=== PATIENT | male | born 1940 | race Caucasian/White ===

== ENCOUNTER → 2017-04-23 14:31 | Outpatient (CLI) | payer MEDICARE, OTHER ==
[2016-06-22 09:53] VITALS: BMI 42.9
[~2017-04-23 14:31] MED LIST: ACCUPRIL40 MG PO; ACETAMINOPHEN325 MG PO; ASPIRIN325 MG PO; BAYER CHEWABLE81 MG PO; COREG25 MG PO; ENDOCET 10-3251 TAB PO; LIPITOR10 MG PO; NORVASC10 MG PO; OCUVITE TABLET1 TA1 PO; PLAVIX75 MG PO; PRILOSEC20 MG PO
== END | disposition home or self-care (01) ==
LOC: D.US 14:31
DX: I65.23 Occlusion and stenosis of bilateral carotid arteries (principal)

== ENCOUNTER → 2018-06-25 13:17 | Outpatient (CLI) | payer MEDICARE, OTHER ==
[2016-06-22 09:53] VITALS: BMI 42.9
== END | disposition home or self-care (01) ==
LOC: D.US 13:17
DX: I65.23 Occlusion and stenosis of bilateral carotid arteries (principal)

== ENCOUNTER → 2018-10-21 10:55 | Outpatient (CLI) | payer MEDICARE, BC ==
[2016-06-22 09:53] VITALS: BMI 42.9
== END | disposition home or self-care (01) ==
LOC: D.MRI 10:55
DX: M54.16 Radiculopathy, lumbar region (principal)

== ENCOUNTER 2018-11-03 19:11 | Observation (INO) | payer MEDICARE, BC ==
[~2018-11-03] VITALS: Ht 162.6 cm; Wt 79.4 kg
--- NOTE | ~2018-11-03 | EC ---
PATIENT:EILEEN OSBORN DATE OF SERVICE: 11/03/18 SEX: M MEDICAL RECORD: [id number] DATE OF : 40 LOCATION:D. D.213 AGE OF PATIENT: 77 ADMISSION DATE: 11/03/18 REFERRING PHYSICIAN: INTERPRETING PHYSICIAN: VINEET BOYLE MD ECHOCARDIOGRAM REPORT ECHO CHARGES 4 ECHO COMPLETE Date: 11/04/18 CLINICAL DIAGNOSIS: SYNCOPE, HX HEART DISEASE, CAD, CABG ECHOCARDIOGRAPHIC MEASUREMENTS (adult normal given) AC root (d.<3.7cm) 2.5 cm LV Septum d (<1.2 cm> 1.3 cm Valve Excursion 0.7 cm LV Septum (systole) 2.0 cm Left Atria (s.<4.0cm> 4.6 cm LVPW d(<1.2cm) 1.4 cm RV (d.<2.3cm) 3.0 cm LVPW (sytole) 1.9 cm LV diastole(<5.6CM) 4.1 cm MV E-F(>70mm/sec) cm LV systole 2.4 cm LVOT Diameter 2.2 cm MV exc.(>10mm) cm Est.ejection fraction (50-75%) % DOPPLER: LVIT cm/sec A 64 cm/sec E 137 cm/sec LA cm/sec RVSP 51.5 mmHg LVOT 94 cm/sec AOP1/2T m/s Asc. Ao 209 cm/sec RVOT 53 cm/sec RA cm/sec PA 80 cm/sec AV Gradient Peak 17.4 mmHg AV Mean 8.3 mmHg AV Area 2.3 cm MV Gradient Peak 10.6 mmHg MV Mean 3.8 mmHg MV Area cm COMMENTS: Aviation Electronics Technician: Marsha CONNER Manager Plan: 1 Dr. Boyle TAPE# PACS Pericardial Effusion N DATE OF SERVICE: 11/04/2018 FINDINGS: 1. Left ventricular chamber size is within normal limits. Left ventricular systolic function is normal. Overall ejection fraction is estimated at 55%. 2. Left atrium is enlarged at 4.6 cm. Right atrium and right ventricle chamber sizes are as well mildly dilated. 3. Valvular structures: Aortic valve demonstrates mild calcific aortic stenosis. Valve area calculates to 2.0 cm, but there is a gradient of 17 mm across the valve. The remaining valvular structures have normal structure and ECHOCARDIOGRAM REPORT [id number] EILEEN OSBORN. 4. Doppler interrogation elsewise reveals rvjh-fd-dymhqhaj mitral regurgitation and zfnf-vg-lhnsjdlx tricuspid regurgitation. No other valvular insufficiency or stenosis. Pulmonary systolic pressure is elevated, estimated at 51 mmHg. 5. No evidence of pericardial effusion or left ventricular thrombus. TRANSINT:[id number] Voice Confirmation ID: [id number] DOCUMENT ID: [id number] VINEET BOYLE MD CC: [id number] DICTATION DATE: 11/04/18 163 DESIGN DRAFTSMAN: 11/04/18 [address] [facility] [address] [id number]
[2018-11-03 19:40] LABS: BASOPHILS 0.3 % (0-2); EOSINOPHILS 3.3 % (0-7); HEMATOCRIT 39.1 % (42.0-54.0); HEMOGLOBIN 12.8 g/dL (13.5-17.5); IMMATURE GRANULOCYTES 0.4 % (0-5); LYMPHOCYTES 30.2 % (15-50); MCH 29.2 pg (26.0-34.0); MCHC 32.7 g/dL (31.0-37.0); MCV 89.1 fL (80.0-100.0); MEAN PLATELET VOLUME 9.5 fL (7.4-10.4); MONOCYTES 10.2 % (2-11); NEUTROPHILS 55.6 % (40-80); PLATELET COUNT 186 10x3/uL (130-400); RBC 4.39 10x6/uL (4.20-6.10); RDW 13.8 % (11.5-14.5); WBC 7.2 10x3/uL (4.8-10.8)
[2018-11-03 20:05] LABS: ALBUMIN 3.4 g/dL (3.4-5.0); ALKALINE PHOSPHATASE 106 U/L (46-116); ALT (SGPT) 10 U/L (10-68); BILIRUBIN - TOTAL 0.41 mg/dL (0.2-1.3); CALCIUM 8.5 mg/dL (8.5-10.1); CARBON DIOXIDE 28.3 mmol/L (21.0-32.0); CHLORIDE - SERUM 106 mmol/L (98-107); CREATININE - SERUM 1.7 mg/dL (0.6-1.3); POTASSIUM - SERUM 4.1 mmol/L (3.5-5.1); PROTEIN - SERUM 7.5 g/dL (6.4-8.2); SODIUM 143 mmol/L (136-145); UREA NITROGEN 18 mg/dL (7-18); eGFR NON AFRICAN AMERICAN 42 mL/min (90-120)
[2018-11-03 20:11] LABS: CREATINE KINASE 45 UL (21-232); PRO BNP 1207 pg/mL (0-450)
[2018-11-03 20:13] LABS: CALC OSMOLALITY 288 mosm/kg (275-300); GLUCOSE 129 mg/dL (74-106); TROPONIN-I < 0.017 ng/mL (0.000-0.060)
[2018-11-03 20:31] LABS: APTT 27.5 SECONDS (22.8-39.4); INR 1.09 (0.85-1.17); PROTIME 13.6 SECONDS (11.6-15.0)
--- NOTE | 2018-11-03 21:15 | NUR ---
PT RECEIVED VIA Gogobeans[facility]ER FROM ER, PT UNABLE TO TELL ME MEDS, SAID SOMEONE WILL BE HERE TOMORROW, PLACED ON TELEMTRY, 18G.-IV-LAC-NS @75, BED IS LOW, SRX2, CALL LIGHT IN REACH, WILL CONTINUE PLAN OF CARE
--- NOTE | 2018-11-04 02:36 | NUR ---
I have reviewed this patient and I concur with the Shift Assessment completed by the Licensed Practical Nurse today this shift.
--- NOTE | 2018-11-04 03:29 | NUR ---
ASSISTED PT TO TURN ON L.SIDE. CALL LIGHT IN REACH
[2018-11-04 03:50] VITALS: BP 133/69
[2018-11-04 03:52] VITALS: BP 102/55; BMI 30.1
--- NOTE | 2018-11-04 07:47 | NUR ---
REPORT RECEIVED. WILL CONTINUE WITH POC. PT CURRENTLY LYING SEMI FOWLERS. CALL LIGHT W/I REACH. PT IS AAO AND UP WITH WALKER. RR EVEN AND UNLABORED ON RA. NS INFUSING @75ML/HR VIA R.AC PIV PT DENIES ANY NEEDS AT THIS TIME. NO S/S OF DISTRESS NOTED. WILL CTM.
[2018-11-04 08:28] VITALS: BP 145/72
--- NOTE | 2018-11-04 11:14 | NUR ---
AM MEDICATIONS ADMINISTERED. PT HAD LARGE BM. CLEANED PT AND APPLIED NEW LINENS. PT DENIES ANY NEEDS. WILL CTM.
[2018-11-04 11:40] VITALS: BP 141/76
[2018-11-04 13:57] VITALS: Ht 162.6 cm; Wt 79.4 kg
[2018-11-04 14:55] VITALS: BP 132/72
--- NOTE | 2018-11-04 15:20 | NUR ---
I have reviewed this patient and I concur with the Shift Assessment completed by the Licensed Practical Nurse today this shift.
--- NOTE | 2018-11-04 19:48 | NUR ---
RESUMING PATIENT CARE. PATIENT IS ALERT AND ORIENTED. RESPIRATIONS ARE EVEN AND UNLABORED. NO S/S OF DISTRESS. NO C/O PAIN. CALL LIGHT WITHIN REACH. WILL CPOC.
[2018-11-04 20:05] VITALS: BP 140/61
[2018-11-05 03:47] VITALS: BP 156/68
--- NOTE | 2018-11-05 05:14 | NUR ---
PATIENT IS RESTING COMFORTABLY IN BED. RESPIRATIONS ARE EVEN AND UNLABORED. NO S/S OF DISTRESS. NO C/O PAIN. CALL LIGHT WITHIN REACH. WILL CPOC.
--- NOTE | 2018-11-05 07:00 | NUR ---
RECEIVED BEDSIDE REPORT. ASSUMED CARE OF PATIENT. CALL LIGHT WITHIN REACH. PATIENT HARD OF HEARING. DENIES NEEDS AT THIS TIME. EDEMA NOTED TO BILATERAL LOWER EXTREMITIES. NO DISTRESS. RESP EVEN AND UNLABORED.
[2018-11-05 08:26] VITALS: BP 150/64
--- NOTE | 2018-11-05 09:11 | NUR ---
MEDICATED FOR PAIN AT THIS TIME. NO DISTRESS. ASSISTED PATIENT TO LYE DOWN IN BED.
[2018-11-05 11:44] VITALS: BP 141/66
--- NOTE | 2018-11-05 11:56 | NUR ---
20 GAUGE IV PLACED TO LEFT FOREARM X 1 STICK. GOOD BLOOD RETURN, EASY FLUSH. TOLERATED IV PLACEMENT WELL. TAPED, DATED,AND SECURED. IV FLUIDS INFUSING ORDERED AT THIS TIME.
--- NOTE | 2018-11-05 13:25 | HP ---
PATIENT: EILEEN OSBORN MEDICAL RECORD: [id number] ACCOUNT: [id number] LOCATION:[address] : 40 ADMISSION DATE: 11/03/18 PCP: HANK HOWARD MD HISTORY AND PHYSICAL EXAMINATION DATE OF ADMISSION: 11/03/2018 CHIEF COMPLAINT: Near syncope. HISTORY OF PRESENT ILLNESS: This is a 77-year-old white male with a past medical history of coronary artery disease with bypass years ago. He also has hypertension, arthritis, and chronic low back pain. He has been feeling weaker lately. He and his family were eating at a [employer] on 11/03/2018. He had finished his plate, gotten up to go get some more, and felt real weak. He broke out in a cold sweat. He had to sit down. He made it back to his table, ate some more, and felt weaker. He had a near syncopal episode. He was brought to the ER and had 1 episode of nausea and vomiting en route to the ER. There, his blood pressure initially was low at 114/47. He is on 3 antihypertensive medications at almost maximum doses for all 3. He states he has not had any chest pain, but with his symptoms and his age and his past medical history, he is assigned to observation at this time. PAST MEDICAL AND SURGICAL HISTORY: Hyperlipidemia, hypertension, coronary artery disease, arthritis, and herniated lumbar disc. PAST SURGICAL HISTORY: Coronary artery bypass grafting. He had surgery for L4-L5 herniated disc by Dr. Armenta in 2011 at [facility] [facility]. He is very hard of hearing. HOME MEDICATIONS: He takes carvedilol 25 mg twice a day, amlodipine 10 mg once a day and lisinopril 40 mg once a day. He takes Furosemide 20 mg 2 tablets daily as needed for swelling. He takes Percocet 10/325 four times a day p.r.n. back pain, Flexeril 10 mg 3 times a day p.r.n. spasm, omeprazole 20 mg a day, clopidogrel 75 mg once a day, and atorvastatin 10 mg once a day. ALLERGIES: PENICILLIN. HABITS: Unfortunately, he has continued to smoke. No alcohol or drugs. SOCIAL HISTORY: He is . He lives with a son and lbnqjaov-dw-anq. FAMILY HISTORY: Noncontributory. REVIEW OF SYSTEMS: GENERAL: No major weight changes. HEENT: No particular sinus or allergy problems. RESPIRATORY: Long smoking history. He does not use any inhalers or have much trouble with COPD or emphysema. CARDIAC: See above history for his heart. He is followed by Dr. Boyle and saw him back in June for routine check. It is really unknown when his last echocardiogram was. GASTROINTESTINAL: Has heartburn. GENITOURINARY: No significant problems there. MUSCULOSKELETAL: He has arthritis and he has chronic low back pain. A recent MRI done in the last 3 weeks of his lumbar spine showed degenerative disc HISTORY AND PHYSICAL [id number] EILEEN OSBORN L disease with bulging discs. NEUROLOGIC: He is hard of hearing. No seizures, no migraine headaches. PSYCHIATRIC: Denies depression or melancholia. PHYSICAL EXAMINATION: VITAL SIGNS: Temperature 97.2, pulse 78, respirations 20, blood pressure 145/72. GENERAL: He is very hard of hearing, even with his hearing aids and he does not have them now. HEENT: Unremarkable. NECK: Supple. No JVD or bruit. HEART: Regular rate and rhythm. LUNGS: Fairly clear, few rales bilaterally. ABDOMEN: Soft, flat, nontender. EXTREMITIES: No edema. BACK: With generalized tenderness in the lumbar area. LABORATORY DATA: CBC is normal. INR 1.09. Basic metabolic panel is okay except creatinine elevated at 1.7, which is about usual for him. Liver functions were okay. ProBNP 1207, troponin less than 0.017. Chest x-ray shows left basilar atelectasis. ASSESSMENT: 1. Near syncope. 2. Hypertension with low blood pressure reading in the ER. 3. History of coronary artery disease. 4. Chronic pain in his back, on Percocet p.r.n. PLAN: We will back down a little on his carvedilol. Continue to monitor blood pressure. We will place him on telemetry. We will schedule an echocardiogram. Other tests or procedures as warranted. TRANSINT:[id number] Voice Confirmation ID: [id number] DOCUMENT ID: [id number] HANK HOWARD MD at 1325 CC: [id number] DICTATION DATE: 11/04/182032 SAMPLE PULLER: 11/04/18 [address] [facility] [place] [address]
--- NOTE | 2018-11-05 14:56 | NUR ---
PATIENT RESTING IN BED. FAMILY AT BEDSIDE. CALL LIGHT WITHIN REACH. NO DISTRESS.
--- NOTE | 2018-11-05 15:14 | NUR ---
KYREE WITH PT HERE TO WALK PATIENT AT THIS TIME.
--- NOTE | 2018-11-05 15:31 | NUR ---
SPOKE WITH YUNG, NURSE, TO LET HER KNOW THAT PT HAS EVALUATED PATIENT AND HE IS SAFE FOR DISCHARGE WITH THE USE OF HIS ROLLING WALKER. REQUESTED THAT YUNG ASK IF HE WILL WANTS TO DISCHARGE HIM TO HOME TODAY. YUNG STATES SHE WILL LET KNOW AND IT MAY BE AFTER CLINIC BEFORE HE IS ABLE TO PUT IN ANY ORDERS.
[2018-11-05 15:34] VITALS: BP 152/69
--- NOTE | 2018-11-05 18:04 | NUR ---
TELEMETRY REMOVED AT 1754 20 GAUGE IV REMOVED FROM LEFT FOREARM. PRESSURE HELD TO SITE. NO BLEEDING. CATHETER TIP INTACT. 2X2 GAUZE APPLIED AND SECURED WITH BANDAID. TOLERATED IV REMOVAL WELL. 1800 DISCHARGE INSTRUCTIONS PROVIDED TO PATIENT AND HIS DAUGHTERS WHOM HE LIVES WITH. PATIENT AND FAMILY VERBALIZED UNDERSTANDING OF ALL INSTRUCTIONS PROVIDED. 1803 PATIENT LEFT UNIT VIA WHEELCHAIR WITH ALL PERSONAL BELONGINGS. PATIENT LEFT UNIT IN NO DISTRESS. PATIENT DISCHARGED TO HOME.
== END 2018-11-05 18:03 | disposition home or self-care (01) ==
LOC: D.ER 19:11 → OBSVTIME 20:26 → D.M2 20:26
PROVIDERS: Emergency Medicine; ADMIT Family Medicine; ATTEND Family Medicine
DX: I95.1 Orthostatic hypotension (principal); I25.10 Atherosclerotic heart disease of native coronary artery without angina pectoris; Z95.1 Presence of aortocoronary bypass graft; I10 Essential (primary) hypertension; E78.5 Hyperlipidemia, unspecified; G89.29 Other chronic pain

== ENCOUNTER → 2019-06-25 10:56 | Outpatient (CLI) | payer MEDICARE, BC | END | disposition home or self-care (01) | LOC: D.US 06-23 15:00 | PROVIDERS: ATTEND Internal Medicine Cardiovascular Disease | DX: I65.23 Occlusion and stenosis of bilateral carotid arteries (principal) ==

== ENCOUNTER 2019-12-01 12:20 | Inpatient (IN) | payer MEDICARE, BC ==
[~2019-12-01] VITALS: Ht 162.6 cm; Wt 81.2 kg
[2019-12-01 13:30] VITALS: BP 108/66
[2019-12-01 15:00] VITALS: BP 119/68
[2019-12-01 15:48] LABS: BASOPHILS 0.1 % (0-2); EOSINOPHILS 3.9 % (0-7); HEMATOCRIT 33.1 % (42.0-54.0); IMMATURE GRANULOCYTES 0.3 % (0-5); LYMPHOCYTES 18.2 % (15-50); MCH 24.6 pg (26.0-34.0); MCHC 30.2 g/dL (31.0-37.0); MCV 81.5 fL (80.0-100.0); MEAN PLATELET VOLUME 9.2 fL (7.4-10.4); NEUTROPHILS 68.5 % (40-80); PLATELET COUNT 203 10x3/uL (130-400); RBC 4.06 10x6/uL (4.20-6.10); RDW 17.3 % (11.5-14.5); WBC 7.9 10x3/uL (4.8-10.8)
[2019-12-01 16:07] LABS: ANION GAP 10.6 mmol/L (8-16); CALCIUM 8.3 mg/dL (8.5-10.1); CARBON DIOXIDE 27.9 mmol/L (21.0-32.0); CREATININE - SERUM 1.6 mg/dL (0.6-1.3); POTASSIUM - SERUM 3.5 mmol/L (3.5-5.1)
[2019-12-01 16:17] LABS: ALBUMIN 2.9 g/dL (3.4-5.0); BILIRUBIN - TOTAL 0.94 mg/dL (0.2-1.3); PROTEIN - SERUM 7.2 g/dL (6.4-8.2); TROPONIN-I 0.022 ng/mL (0.000-0.060)
[2019-12-01] MEDS ORDERED: LASIX40 MG PO (16:38)
[2019-12-01] MEDS ORDERED: COREG12.5 MG PO (16:39)
[2019-12-01] MEDS ORDERED: FEXMID7.5 MG PO (16:39)
[2019-12-01 17:00] VITALS: BP 118/64
[2019-12-01 20:00] VITALS: BP 99/54
[2019-12-01 20:44] VITALS: BP 99/54; BMI 30.8
[2019-12-02] VITALS: BP 106/48
[2019-12-02 04:00] VITALS: BP 117/63
[2019-12-02 05:22] LABS: BASOPHILS 0.1 % (0-2); EOSINOPHILS 4.1 % (0-7); HEMATOCRIT 33.4 % (42.0-54.0); IMMATURE GRANULOCYTES 0.4 % (0-5); LYMPHOCYTES 14.8 % (15-50); MCH 24.4 pg (26.0-34.0); MCHC 29.9 g/dL (31.0-37.0); MCV 81.5 fL (80.0-100.0); MEAN PLATELET VOLUME 9.5 fL (7.4-10.4); MONOCYTES 10.5 % (2-11); NEUTROPHILS 70.1 % (40-80); PLATELET COUNT 224 10x3/uL (130-400); RDW 17.6 % (11.5-14.5); WBC 7.7 10x3/uL (4.8-10.8)
[2019-12-02 05:39] LABS: ANION GAP 11.9 mmol/L (8-16); CALCIUM 8.3 mg/dL (8.5-10.1); CARBON DIOXIDE 28.5 mmol/L (21.0-32.0); CREATININE - SERUM 1.4 mg/dL (0.6-1.3); POTASSIUM - SERUM 3.4 mmol/L (3.5-5.1)
[2019-12-02 07:37] VITALS: BP 144/73
--- NOTE | 2019-12-02 10:01 | HP ---
PATIENT: EILEEN OSBORN MEDICAL RECORD: [id number] ACCOUNT: [id number] LOCATION:[address] : 40 ADMISSION DATE: 12/01/19 PCP: HANK HOWARD MD HISTORY AND PHYSICAL EXAMINATION DATE OF ADMISSION: 12/01/2019 CHIEF COMPLAINT: Left hip pain, unable to bear weight. HISTORY OF PRESENT ILLNESS: This is a 78-year-old white male who I followed for a long time, has history of hypertension, coronary artery disease, osteoarthritis, lumbar disk disease with chronic pain and very hard of hearing. A couple of days ago, he was in his kitchen, getting a cup of coffee. He set his coffee down and turned to sit down when he fell and he started with acute left hip pain at that time and he has been unable to bear weight. He was brought to the ER around 4:06 and found to have left femoral neck fracture and nondisplaced fracture of the anterior left acetabulum. Also, on EKG in the ER, his heart rate was 113 and he was found to be in atrial fibrillation, which is a new diagnosis. The patient is followed by [place] cardiology for his heart disease. PAST MEDICAL HISTORY: Hypertension, hyperlipidemia, coronary artery disease, osteoarthritis, lumbar disk disease, peripheral artery disease, hard of hearing. PAST SURGICAL HISTORY: Coronary artery bypass graft, lumbar spine surgery by Dr. Armenta in 2011. ALLERGIES: PENICILLIN. HOME MEDICATIONS: Percocet 10 mg t.i.d., Lasix 20 mg 2 a day, Lipitor 10 mg once a day, Phenergan p.r.n., omeprazole 20 mg twice a day, amlodipine 10 mg once a day, Flexeril t.i.d. p.r.n. pain, Plavix 75 mg once a day, aspirin 325 mg once a day, quinapril 40 mg once a day, carvedilol 25 mg he takes one-half b.i.d. HABITS: The patient has continued to smoke and states he is going to quit. He denies alcohol or drug use. SOCIAL HISTORY: He is . He is retired. He lives with family. REVIEW OF SYSTEMS: GENERAL: No major weight changes. HEENT: No particular sinus or allergy problems. RESPIRATORY: Long time smoker. He is not on any medication for COPD or emphysema. CARDIAC: See above history. He saw Dr. Boyle about every 6 months to a year, last seen in July 2019. GASTROINTESTINAL: He has had reflux problems. GENITOURINARY: No significant problems there. MUSCULOSKELETAL: Chronic low back pain. He has had back surgery. He has osteoarthritis. NEUROLOGIC: No migraines. No seizures. He is very hard of hearing. PSYCHIATRIC: Denies depression or melancholia. PHYSICAL EXAMINATION: HISTORY AND PHYSICAL [id number] EILEEN OSBORN VITAL SIGNS: Today, temperature 99.0, pulse 115, respirations 15, blood pressure 144/73, O2 sat 91%. GENERAL: He is awake and alert. He is very hard of hearing. HEENT: Unremarkable. NECK: Supple. HEART: Irregularly irregular with tachycardia. LUNGS: With bilateral rhonchi, which is fairly common for him. ABDOMEN: Soft, nontender. EXTREMITIES: No edema. He has pain in the left hip. LABORATORY AND DIAGNOSTIC DATA: CBC with a white count of 7700, hemoglobin 10, hematocrit 33.4, MCV normal at 81. Sodium 140, potassium 3.4, chloride 103, CO2 28.5, BUN 24, creatinine 1.4. Liver enzymes were all normal. Troponin 0.022. EKG in the ER showed AFib with a rate of 113. This is a new diagnosis. X-rays done; x-ray of the lumbar spine showed degenerative changes. CT of the lumbar spine showed infrarenal abdominal aortic aneurysm. CT of the pelvis showed left femoral neck fracture, mildly displaced, and nondisplaced fracture of anterior portion of the left acetabulum. X-ray of the left hip did not show the fracture, just showed osteoarthritis of the hip. Chest x-ray showed nothing acute. ASSESSMENT: 1. Left hip fracture. 2. Left acetabulum fracture. 3. New diagnosis of atrial fibrillation with rapid ventricular response. 4. Hypertension. 5. Coronary artery disease. 6. Hard of hearing. PLAN: Ortho has been consulted. We will place a consult to cardiology, place him on telemetry. Other tests or procedures as warranted. TRANSINT:[id number] Voice Confirmation ID: [id number] DOCUMENT ID: [id number] HANK HOWARD MD at 1001 CC: [id number] DICTATION DATE: 12/02/19815 INJECTION MOLDING ENGINEER: 12/02/19 0859 ADM IN [facility] [address] [place] [address]
[2019-12-02 12:17] VITALS: BP 95/55
[2019-12-02 12:21] VITALS: BMI 30.7
[2019-12-02 13:01] VITALS: Ht 162.6 cm; Wt 81.2 kg
[2019-12-02 16:14] VITALS: BP 112/64
[2019-12-02 21:55] VITALS: BP 121/67
[2019-12-03 00:55] VITALS: BP 131/76
[2019-12-03 06:50] VITALS: BP 141/72
[2019-12-03 09:03] VITALS: BP 154/90
[2019-12-03 13:41] VITALS: BP 106/71
--- NOTE | 2019-12-03 18:27 | MORECARE ---
CASE MANAGEMENT DISCHARGE SUMMARY PATIENT: EILEEN OSBORN UNIT: [id number] ADM DATE: 12/01/19 AGE: 78 : 40 SEX: M ROOM/BED: D.2230 AUTHOR: WENCESLAO SCOTT PHYSICIAN: REFERRING PHYSICIAN: NINOSKA EVANS MD DATE OF SERVICE: 12/03/19 Discharge Plan Patient Name: EILEEN OSBORN [facility] [facility] 1940 Planned Disposition: Anticipated Discharge Date: Discharge Date: Expected LOS: Initial Reviewer: [email or web address] Initial Review Date: 12/01/2019 Generated: 12/03/19 7:27 pm Comments DCP- Discharge Planning Updated by [email or web address]: Dagmar Cordoba on 12/03/19 5:[address] ATTEMPTED TO SEE PATIENT TODAY, BUT HE WAS SLEEPING. CM WILL ATTEMPT AGAIN AT A LATER TIME Patient Name: EILEEN OSBORN Page [id number] at 1827 All edits/amendments must be made on the electronic document DICTATION DATE: 12/03/191826 RURAL CARRIER: BARNEY 12/03/191826 RPT#: [id number] DC DATE: STATUS: ADM IN [facility] [address] [place] [address] END OF REPORT
[2019-12-03 18:29] VITALS: BP 116/77
[2019-12-03 21:49] VITALS: BP 139/78
[2019-12-04 01:49] VITALS: BP 118/65
[2019-12-04 06:01] VITALS: BP 110/68
[2019-12-04 11:58] VITALS: BP 135/69
[2019-12-04 13:42] VITALS: BP 117/71
[2019-12-04 17:16] VITALS: BP 126/64
[2019-12-04 20:00] VITALS: BP 117/69
[2019-12-05] VITALS (7 sets, daily range): BP systolic 93–149; BP diastolic 59–93
[2019-12-05 05:11] LABS: HEMATOCRIT 30.7 % (42.0-54.0); HEMOGLOBIN 9.4 g/dL (13.5-17.5); MCH 25.1 pg (26.0-34.0); MCHC 30.6 g/dL (31.0-37.0); MCV 81.9 fL (80.0-100.0); MEAN PLATELET VOLUME 9.4 fL (7.4-10.4); RBC 3.75 10x6/uL (4.20-6.10); RDW 17.4 % (11.5-14.5); WBC 8.2 10x3/uL (4.8-10.8)
--- NOTE | 2019-12-05 14:52 | MORECARE ---
CASE MANAGEMENT DISCHARGE SUMMARY PATIENT: EILEEN HENNESSY UNIT: [id number] ADM DATE: 12/01/19 AGE: 78 : 40 SEX: M ROOM/BED: D.2230 AUTHOR: WENCESLAO SCOTT PHYSICIAN: REFERRING PHYSICIAN: NINOSKA EVANS MD DATE OF SERVICE: 12/05/19 Discharge Plan Patient Name: EILEEN HENNESSY Facility: [facility]:[place] : 1940 Planned Disposition: Inpatient Rehab Anticipated Discharge Date: 12/05/19 Discharge Date: Expected LOS: 4 Initial Reviewer: [email or web address] Initial Review Date: 12/01/2019 Generated: 12/05/19 3:51 pm Comments DCP- Discharge Planning Updated by [email or web address]: Dagmar Cordoba on 12/03/19 5:[address] ATTEMPTED TO SEE PATIENT TODAY, BUT HE WAS SLEEPING. CM WILL ATTEMPT AGAIN AT A LATER TIME DCPIA - Discharge Planning Initial Assessment Updated by [email or web address]: Maria Luisa Quezada on 12/05/19 2:50 pm * Is the patient Alert and Oriented? Yes * How many steps to enter\exit or inside your home? Ramp/0 * PCP Dr. Fall * Pharmacy [facility] on [address] * Preadmission Environment Home with Family * ADLs Partial Dependent * Partial ADLs (Assistance needed) Ambulation Medication Management * Equipment Grab Bars Shower Chair Walker Wheelchair * List name and contact numbers for known caregivers / representatives who currently or will assist patient after discharge: Joey Hennessy - son and [facility] - [phone] Holly Islas - daughter - [phone] * Verbal permission to speak to the caregivers and representatives has been obtained from the patient. Yes * Community resources currently utilized None * Additional services required to return to the preadmission environment? Yes * Can the patient safely return to the preadmission environment? Yes * Has this patient been hospitalized within the prior 30 days at any hospital? No Last DP export: 12/03/19 5:27 pm Patient Name: EILEEN HENNESSY Page [id number] at 1452 All edits/amendments must be made on the electronic document DICTATION DATE: 12/05/191450 STUDENT UNION CONSULTANT: BARNEY 12/05/191450 RPT#: [id number] DC DATE: STATUS: ADM IN [facility] [address] [place] [address] END OF REPORT
--- NOTE | 2019-12-05 14:59 | MORECARE ---
CASE MANAGEMENT DISCHARGE SUMMARY PATIENT: EILEEN HENNESSY UNIT: [id number] ADM DATE: 12/01/19 AGE: 78 : 40 SEX: M ROOM/BED: D.2230 AUTHOR: WENCESLAO SCOTT PHYSICIAN: REFERRING PHYSICIAN: NINOSKA EVANS MD DATE OF SERVICE: 12/05/19 Discharge Plan Patient Name: EILEEN HENNESSY Facility: [facility]:[place] : 1940 Planned Disposition: Inpatient Rehab Anticipated Discharge Date: 12/05/19 Discharge Date: Expected LOS: 4 Initial Reviewer: [email or web address] Initial Review Date: 12/01/2019 Generated: 12/05/19 3:59 pm Comments DCP- Discharge Planning Updated by [email or web address]: Maria Luisa Quezada on 12/05/19 1:[address] Patient Name: EILEEN HENNESSY Admission Status: Elective Accout number: [id number] Admission Date: 12-01-2019 : 1940 Admission Diagnosis:FRACTURE OF UNSP PART OF NECK OF LEFT FEMUR, INIT Attending: NINOSKA EVANS Current LOS: 4 Anticipated DC Date: 12-05-2019 Planned Disposition: Inpatient Rehab Primary Insurance: MEDICARE A & B Discharge Planning Comments: CM met with patient to discuss discharge planning/needs. He is in agreement to inpatient rehab at [facility]. He states he lives with his son and DIL and their child. He asks if I can call his son or daughter for further questions. I called Holly, no answer at his son's number. Holly verifies his address and contact phone numbers. She states that his DIL sets up his pill box and patient no longer drives. States otherwise he is independent. States he does use a walker and they have a wheelchair for outings. She agrees with inpatient rehab when medically stable. CM will continue to follow and assist with discharge planning/needs. Assistant Customer Service Manager: Maria Luisa Quezada DCP- Discharge Planning Updated by [email or web address]: Dagmar Cordoba on 12/03/19 5:[address] ATTEMPTED TO SEE PATIENT TODAY, BUT HE WAS SLEEPING. CM WILL ATTEMPT AGAIN AT A LATER TIME DCPIA - Discharge Planning Initial Assessment Updated by [email or web address]: Maria Luisa Quezada on 12/05/19 2:50 pm * Is the patient Alert and Oriented? Yes * How many steps to enter\exit or inside your home? Ramp/0 * PCP Dr. Fall * Pharmacy [facility] on [address] * Preadmission Environment Home with Family * ADLs Partial Dependent * Partial ADLs (Assistance needed) Ambulation Medication Management * Equipment Grab Bars Shower Chair Walker Wheelchair * List name and contact numbers for known caregivers / representatives who currently or will assist patient after discharge: Joey Hennessy - son and DIL - [phone] Holly Islas - daughter - [phone] * Verbal permission to speak to the caregivers and representatives has been obtained from the patient. Yes * Community resources currently utilized None * Additional services required to return to the preadmission environment? Yes * Can the patient safely return to the preadmission environment? Yes * Has this patient been hospitalized within the prior 30 days at any hospital? No Coverage Notice Reviewer: [email or web address] - Maria Luisa Quezada Notice Issued Date-Time: 12/05/2019 14:53 Notice Type: Patient Choice Letter Notice Delivered To: Patient Relationship to Patient: Self [place] Name: Delivery Method: HAND - Hand Delivered Yvette Days: Prior Verbal Notification: Recipient Understood Notice: Yes Recipient Signature: Yes Med Rec Note Co-signed by Attending: Coverage Notice Comment: ALBERTA for [facility] inpatient rehab Last DP export: 12/05/19 1:52 p Patient Name: EILEEN HENNESSY Page [id number] at 1459 All edits/amendments must be made on the electronic document DICTATION DATE: 12/05/191458 HOME HEALTH ASSISTANT: BARNEY 12/05/19 145 RPT#: [id number] DC DATE: STATUS: ADM IN [facility] [address] [facility] [place] [address] END OF REPORT
--- NOTE | 2019-12-05 16:37 | MORECARE ---
CASE MANAGEMENT DISCHARGE SUMMARY PATIENT: EILEEN HENNESSY UNIT: [id number] ADM DATE: 12/01/19 AGE: 78 : 40 SEX: M ROOM/BED: D.2230 AUTHOR: WENCESLAO SCOTT PHYSICIAN: REFERRING PHYSICIAN: NINOSKA EVANS MD DATE OF SERVICE: 12/05/19 Discharge Plan Patient Name: EILEEN HENNESSY Facility: [facility]:[place] : 1940 Planned Disposition: Inpatient Rehab Anticipated Discharge Date: 12/05/19 Discharge Date: Expected LOS: 4 Initial Reviewer: [id number] Initial Review Date: 12/01/2019 Generated: 12/05/19 5:36 pm Comments DCP- Discharge Planning Updated by [id number]: Maria Luisa Quezada on 12/05/19 3:[address] Denisha in inpatient rehab states they will accept the patient to their department when medically stable. CM will continue to follow and assist with discharge planning/needs. DCP- Discharge Planning Updated by [id number]: Maria Luisa Quezada on 12/05/19 1:[address] Patient Name: EILEEN HENNESSY Admission Status: Elective Accout number: [id number] Admission Date: 12-01-2019 : 1940 Admission Diagnosis:FRACTURE OF UNSP PART OF NECK OF LEFT FEMUR, INIT Attending: NINOSKA EVANS Current LOS: 4 Anticipated DC Date: 12-05-2019 Planned Disposition: Inpatient Rehab Primary Insurance: MEDICARE A & B Discharge Planning Comments: CM met with patient to discuss discharge planning/needs. He is in agreement to inpatient rehab at [facility]. He states he lives with his son and DIL and their child. He asks if I can call his son or daughter for further questions. I called Holly, no answer at his son's number. Holly verifies his address and contact phone numbers. She states that his DIL sets up his pill box and patient no longer drives. States otherwise he is independent. States he does use a walker and they have a wheelchair for outings. She agrees with inpatient rehab when medically stable. CM will continue to follow and assist with discharge planning/needs. Engineering Professor: Maria Luisa Quezada DCP- Discharge Planning Updated by [id number]: Dagmar Cordoba on 12/03/19 5:[address] ATTEMPTED TO SEE PATIENT TODAY, BUT HE WAS SLEEPING. CM WILL ATTEMPT AGAIN AT A LATER TIME DCPIA - Discharge Planning Initial Assessment Updated by [id number]: Maria Luisa Quezada on 12/05/19 2:50 pm * Is the patient Alert and Oriented? Yes * How many steps to enter\exit or inside your home? Ramp/0 * PCP Dr. Fall * Pharmacy [facility] on [address] * Preadmission Environment Home with Family * ADLs Partial Dependent * Partial ADLs (Assistance needed) Ambulation Medication Management * Equipment Grab Bars Shower Chair Walker Wheelchair * List name and contact numbers for known caregivers / representatives who currently or will assist patient after discharge: Joey Hennessy - son and [facility] - [phone] Holly Islas - daughter - [phone] * Verbal permission to speak to the caregivers and representatives has been obtained from the patient. Yes * Community resources currently utilized None * Additional services required to return to the preadmission environment? Yes * Can the patient safely return to the preadmission environment? Yes * Has this patient been hospitalized within the prior 30 days at any hospital? No Coverage Notice Reviewer: [id number] - Maria Luisa Quezada Notice Issued Date-Time: 12/05/2019 14:53 Notice Type: Patient Choice Letter Notice Delivered To: Patient Relationship to Patient: Self Desk Pens Assembler Name: Delivery Method: HAND - Hand Delivered Yvette Days: Prior Verbal Notification: Recipient Understood Notice: Yes Recipient Signature: Yes Med Rec Note Co-signed by Attending: Coverage Notice Comment: ALBERTA for [facility] inpatient rehab Last DP export: 12/05/19 1:59 p Patient Name: EILEEN HENNESSY Page [id number] at 1637 All edits/amendments must be made on the electronic document DICTATION DATE: 12/05/191635 SECOND CUTTER: BARNEY 12/05/191635 RPT#: [id number] DC DATE: STATUS: ADM IN [facility] [address] [place] [address] END OF REPORT
[2019-12-06] VITALS: BP 97/62
[2019-12-06 04:00] VITALS: BP 108/64
[2019-12-06 05:32] LABS: HEMATOCRIT 29.6 % (42.0-54.0); HEMOGLOBIN 8.9 g/dL (13.5-17.5); MCH 24.8 pg (26.0-34.0); MCHC 30.1 g/dL (31.0-37.0); MCV 82.5 fL (80.0-100.0); MEAN PLATELET VOLUME 9.2 fL (7.4-10.4); RBC 3.59 10x6/uL (4.20-6.10); RDW 17.8 % (11.5-14.5); WBC 8.8 10x3/uL (4.8-10.8)
[2019-12-06 14:18] VITALS: BP 163/67
[2019-12-06 20:00] VITALS: BP 97/47
[2019-12-07] VITALS: BP 99/47
[2019-12-07 04:00] VITALS: BP 104/69
[2019-12-07 10:42] VITALS: BP 103/64
[2019-12-07 17:50] VITALS: BP 102/62
[2019-12-07 22:30] VITALS: BP 120/71
[2019-12-08 01:25] VITALS: BP 124/76
[2019-12-08 04:59] VITALS: BP 147/77
[2019-12-08 05:06] LABS: BASOPHILS 0.1 % (0-2); EOSINOPHILS 1.9 % (0-7); HEMATOCRIT 31.1 % (42.0-54.0); HEMOGLOBIN 9.3 g/dL (13.5-17.5); IMMATURE GRANULOCYTES 0.5 % (0-5); LYMPHOCYTES 14.1 % (15-50); MCH 24.6 pg (26.0-34.0); MCHC 29.9 g/dL (31.0-37.0); MCV 82.3 fL (80.0-100.0); MEAN PLATELET VOLUME 8.7 fL (7.4-10.4); MONOCYTES 13.9 % (2-11); NEUTROPHILS 69.5 % (40-80); RBC 3.78 10x6/uL (4.20-6.10); RDW 17.5 % (11.5-14.5); WBC 8.3 10x3/uL (4.8-10.8)
[2019-12-08 05:19] LABS: PLATELET COUNT 309 10x3/uL (130-400)
[2019-12-08 05:23] LABS: ANION GAP 9.6 mmol/L (8-16); CALCIUM 8.1 mg/dL (8.5-10.1); CARBON DIOXIDE 30.8 mmol/L (21.0-32.0); CREATININE - SERUM 1.5 mg/dL (0.6-1.3); POTASSIUM - SERUM 3.4 mmol/L (3.5-5.1)
[2019-12-08 09:27] VITALS: BP 138/69
--- NOTE | 2019-12-08 09:59 | OP ---
PATIENT NAME: EILEEN OSBORN MEDICAL RECORD: [id number] :40 LOCATION:D.MS [id number] ADMISSION DATE:12/01/19 SURGEON: CLAUDIA SULLIVAN MD DATE OF OPERATION: 12/04/2019 PREOPERATIVE DIAGNOSES: 1. Displaced left femoral neck fracture. 2. Anterior acetabular fracture. POSTOPERATIVE DIAGNOSES: 1. Displaced left femoral neck fracture. 2. Anterior acetabular fracture. PROCEDURE: Left endoprosthetic bipolar replacement for displaced femoral neck fracture. SURGEON: Claudia Sullivan MD PEDIATRIC OCCUPATIONAL THERAPIST: SARITHA Brown INTRAOPERATIVE COMPLICATIONS: None. SUMMARY OF PATHOLOGIC FINDINGS: The patient did have a displaced femoral neck fracture consistent with preoperative radiographs. The patient was found to have a very slight crack in the articular surface of the anterior most aspect of the acetabulum; however, it was nondisplaced and I do not feel like it needed any operative intervention in this elderly male. IMPLANTS USED: Accolade II stem on a standard size 26 femoral head with a 49 bipolar component. ESTIMATED BLOOD LOSS: Approximately 100 cc. OPERATIVE SUMMARY IN DETAIL: After obtaining the appropriate preoperative orthopedic surgery consent as well as anesthetic consultation, evaluation and clearance, the patient was placed on the operating table in supine position. After general laryngeal mask airway was administered, the patient was placed in a right lateral decubitus position. All pressure points were well padded to include down leg peroneal pad as well as axillary roll. The patient was held firmly to the operating table using the vacuum pack suction system. The patient's left lower extremity and hip were then prepped and draped in routine sterile fashion. At this point, the appropriate timeout was taken given the unique identifiers and agreed upon by all. Curvilinear incision was made over the greater trochanter, taken down to the IT band to reveal the gluteus medius minimus attachment, so the IT band was split in line with the fibers to reveal the gluteus medius minimus attachment. The gluteus medius minimus were reflected anteriorly. The hip capsule was cut in a T-type fashion and saved for later reapproximation. At this point, the appropriate hematoma was encountered. The femoral neck cut was made using the femoral neck cutting guide and then the femoral head was removed using the corkscrew system from [employer]. Palpable and direct visualization of the patient's acetabulum showed the very small anterior inferior portion of the acetabular fracture, which was stable with palpation. There was no step-off. At this point, attention was then returned to the proximal femur. Serial and sequential reaming and broaching were done for the appropriate size stem that would be a size 4. The size 4 stem was put into OPERATIVE REPORT [id number] EILEEN OSBORN. Trials were undertaken and it was felt that a size standard inner ball and a 49 would be the most appropriate. After copious irrigations were tamped in place, the Pablo taper, reduced, taken through range of motion and found to be stable in all planes. Intraoperative radiograph was taken and showed good position and placement with excellent leg length reapproximation and no displacement of the acetabular fracture component. At this point, the wound was copiously irrigated. Hip capsule was closed with #2 Ethibond. The entire wound was then filled with a gram of vancomycin, a gram and tobramycin. The residual wound was closed by SARITHA Brown including reapproximation of gluteus medius minimus back to the greater trochanter in a transosseous fashion using #5 Ethibond. This was followed by #2 Ethibond, #1 Vicryl, 2-0 Vicryl, and skin dell. Sterile dressings were applied. The patient was awakened and taken to the recovery room in stable condition. All final needle and sponge counts were correct. TRANSINT:[id number] Voice Confirmation ID: [id number] DOCUMENT ID: [id number] NATE LUNDBERG, CLAUDIA ADORNO at 0959 CC: [id number] DICTATION DATE: 12/04/191912 PLATE STACKER: 12/05/19 0059 [facility] [address] [id number]
[2019-12-08 13:19] VITALS: BP 106/63
[2019-12-08 17:47] VITALS: BP 114/62
[2019-12-08 20:00] VITALS: BP 119/64
[2019-12-09 00:57] VITALS: BP 129/65
[2019-12-09 04:57] VITALS: BP 137/68
[2019-12-09 08:47] VITALS: BP 135/72
[2019-12-09 12:48] VITALS: BP 103/57
[2019-12-09] MEDS ORDERED: ELIQUIS2.5 MG PO (13:37)
[2019-12-09] MEDS ORDERED: BETAPACE 120 M120 MG PO (13:38)
[2019-12-09] MEDS ORDERED: HYDROCODON-ACE1 EA10 PO (13:39)
--- NOTE | 2019-12-09 13:58 | MORECARE ---
CASE MANAGEMENT DISCHARGE SUMMARY PATIENT: EILEEN HENNESSY UNIT: [id number] ADM DATE: 12/01/19 AGE: 79 : 40 SEX: M ROOM/BED: D.2230 AUTHOR: WENCESLAO SCOTT PHYSICIAN: REFERRING PHYSICIAN: NINOSKA EVANS MD DATE OF SERVICE: 12/09/19 Discharge Plan Patient Name: EILEEN HENNESSY Facility: [facility]:[place] : 1940 Planned Disposition: Inpatient Rehab Anticipated Discharge Date: 12/05/19 Discharge Date: Expected LOS: 4 Initial Reviewer: [email or web address] Initial Review Date: 12/01/2019 Generated: 12/09/19 2:58 pm DCP- Discharge Planning Updated by [id number]: Maria Luisa Quezada on 12/05/19 3:[address] Denisha in inpatient rehab states they will accept the patient to their department when medically stable. CM will continue to follow and assist with discharge planning/needs. DCP- Discharge Planning Updated by [id number]: Maria Luisa Quezada on 12/05/19 1:[address] Patient Name: EILEEN HENNESSY Admission Status: Elective Accout number: [id number] Admission Date: 12-01-2019 : 1940 Admission Diagnosis:FRACTURE OF UNSP PART OF NECK OF LEFT FEMUR, INIT Attending: NINOSKA EVANS Current LOS: 4 Anticipated DC Date: 12-05-2019 Planned Disposition: Inpatient Rehab Primary Insurance: MEDICARE A & B Discharge Planning Comments: CM met with patient to discuss discharge planning/needs. He is in agreement to inpatient rehab at [facility]. He states he lives with his son and DIL and their child. He asks if I can call his son or daughter for further questions. I called Holly, no answer at his son's number. Holly verifies his address and contact phone numbers. She states that his DIL sets up his pill box and patient no longer drives. States otherwise he is independent. States he does use a walker and they have a wheelchair for outings. She agrees with inpatient rehab when medically stable. CM will continue to follow and assist with discharge planning/needs. Life Science Teacher: Maria Luisa Quezada DCP- Discharge Planning Updated by [email or web address]: Dagmar Serratoken on 12/03/19 5:[address] ATTEMPTED TO SEE PATIENT TODAY, BUT HE WAS SLEEPING. CM WILL ATTEMPT AGAIN AT A LATER TIME DCPIA - Discharge Planning Initial Assessment Updated by [email or web address]: Maria Luisa Quezada on 12/05/19 2:50 pm * Is the patient Alert and Oriented? Yes * How many steps to enter\exit or inside your home? Ramp/0 * PCP Dr. Fall * Pharmacy [facility] on [address] * Preadmission Environment Home with Family * ADLs Partial Dependent * Partial ADLs (Assistance needed) Ambulation Medication Management * Equipment Grab Bars Shower Chair Walker Wheelchair * List name and contact numbers for known caregivers / representatives who currently or will assist patient after discharge: Joey Hennessy - son and [facility] - [phone] Holly Islas - daughter - [phone] * Verbal permission to speak to the caregivers and representatives has been obtained from the patient. Yes * Community resources currently utilized None * Additional services required to return to the preadmission environment? Yes * Can the patient safely return to the preadmission environment? Yes * Has this patient been hospitalized within the prior 30 days at any hospital? No Coverage Notice Reviewer: [id number] - Maria Luisa Quezada Notice Issued Date-Time: 12/05/2019 14:53 Notice Type: Patient Choice Letter Notice Delivered To: Patient Relationship to Patient: Self Conveyor Technician Name: Delivery Method: HAND - Hand Delivered Yvette Days: Prior Verbal Notification: Recipient Understood Notice: Yes Recipient Signature: Yes Med Rec Note Co-signed by Attending: Coverage Notice Comment: ALBERTA for [facility] inpatient rehab Last DP export: 12/05/19 3:37 p Patient Name: EILEEN HENNESSY Page [id number] at 1358 All edits/amendments must be made on the electronic document DICTATION DATE: 12/09/19 1354 HYDRAULIC PRESS OPERATOR: BARNEY 12/09/19 1358 RPT#: [id number] DC DATE: STATUS: ADM IN [facility] [address] [place] [address] END OF REPORT
--- NOTE | 2019-12-09 14:09 | MORECARE ---
CASE MANAGEMENT DISCHARGE SUMMARY PATIENT: EILEEN HENNESSY UNIT: [id number] ADM DATE: 12/01/19 AGE: 79 : 40 SEX: M ROOM/BED: D.2230 AUTHOR: TYLERDOC PHYSICIAN: REFERRING PHYSICIAN: NINOSKA EVANS MD DATE OF SERVICE: 12/09/19 Discharge Plan Patient Name: EILEEN HENNESSY Facility: [facility]:[place] : 1940 Planned Disposition: Inpatient Rehab Anticipated Discharge Date: 12/05/19 Discharge Date: Expected LOS: 4 Initial Reviewer: [email or web address] Initial Review Date: 12/01/2019 Generated: 12/09/19 3:08 pm Comments DCP- Discharge Planning Updated by [id number]: Dagmar Cordoba on 12/09/19 1:[address] PATIENT WILL BE DISCHARGING TO INPATIENT REHAB TODAY I CALLED AND SPOKE TO SON AND IMM GIVEN DCP- Discharge Planning Updated by [id number]: Maria Luisa Quezada on 12/05/19 3:[address] Denisha in inpatient rehab states they will accept the patient to their department when medically stable. CM will continue to follow and assist with discharge planning/needs. DCP- Discharge Planning Updated by [id number]: Maria Luisa Quezada on 12/05/19 1:[address] Patient Name: EILEEN HENNESSY Admission Status: Elective Accout number: [id number] Admission Date: 12-01-2019 : 1940 Admission Diagnosis:FRACTURE OF UNSP PART OF NECK OF LEFT FEMUR, INIT Attending: NINOSKA EVANS Current LOS: 4 Anticipated DC Date: 12-05-2019 Planned Disposition: Inpatient Rehab Primary Insurance: MEDICARE A & B Discharge Planning Comments: CM met with patient to discuss discharge planning/needs. He is in agreement to inpatient rehab at [facility]. He states he lives with his son and DIL and their child. He asks if I can call his son or daughter for further questions. I called Holly, no answer at his son's number. Holly verifies his address and contact phone numbers. She states that his DIL sets up his pill box and patient no longer drives. States otherwise he is independent. States he does use a walker and they have a wheelchair for outings. She agrees with inpatient rehab when medically stable. CM will continue to follow and assist with discharge planning/needs. Pattern Changer And Repairer: Maria Luisa Boswellsola DCP- Discharge Planning Updated by [email or web address]: Dagmar Cordoba on 12/03/19 5:[address] ATTEMPTED TO SEE PATIENT TODAY, BUT HE WAS SLEEPING. CM WILL ATTEMPT AGAIN AT A LATER TIME DCPIA - Discharge Planning Initial Assessment Updated by [id number]: Maria Luisa Quezada on 12/05/19 2:50 pm * Is the patient Alert and Oriented? Yes * How many steps to enter\exit or inside your home? Ramp/0 * PCP Dr. Fall * Pharmacy [facility] on [address] * Preadmission Environment Home with Family * ADLs Partial Dependent * Partial ADLs (Assistance needed) Ambulation Medication Management * Equipment Grab Bars Shower Chair Walker Wheelchair * List name and contact numbers for known caregivers / representatives who currently or will assist patient after discharge: Joey Hennessy - son and DIL - [phone] Holly Islas - daughter - [phone] * Verbal permission to speak to the caregivers and representatives has been obtained from the patient. Yes * Community resources currently utilized None * Additional services required to return to the preadmission environment? Yes * Can the patient safely return to the preadmission environment? Yes * Has this patient been hospitalized within the prior 30 days at any hospital? No Coverage Notice Reviewer: [id number] - Maria Luisa Pilar Notice Issued Date-Time: 12/05/2019 14:53 Notice Type: Patient Choice Letter Notice Delivered To: Patient Relationship to Patient: Self Student Counsellor Name: Delivery Method: HAND - Hand Delivered Yvette Days: Prior Verbal Notification: Recipient Understood Notice: Yes Recipient Signature: Yes Med Rec Note Co-signed by Attending: Coverage Notice Comment: ALBERTA for [facility] inpatient rehab Reviewer: [id number] - Dagmar Cordoba Notice Issued Date-Time: 12/09/2019 13:59 Notice Type: IM Discharge Notice Notice Delivered To: Patient Relationship to Patient: Student Counsellor Name: Delivery Method: HAND - Hand Delivered Yvette Days: Prior Verbal Notification: Recipient Understood Notice: Yes Recipient Signature: Yes Med Rec Note Co-signed by Attending: Coverage Notice Comment: Last DP export: 12/09/19 12:58 p Patient Name: ANURAG EILEEN Page [id number] at 1409 All edits/amendments must be made on the electronic document DICTATION DATE: 12/09/191407 BAG SORTER: BARNEY 12/09/191407 RPT#: [id number] DC DATE: STATUS: ADM IN [facility] [address] [place] [address] END OF REPORT
--- NOTE | 2019-12-10 09:01 | MORECARE ---
CASE MANAGEMENT DISCHARGE SUMMARY PATIENT: EILEEN HENNESSY UNIT: [id number] ADM DATE: 12/01/19 AGE: 79 : 40 SEX: M ROOM/BED: D.2230 AUTHOR: WENCESLAO SCOTT PHYSICIAN: REFERRING PHYSICIAN: NINOSKA EVANS MD DATE OF SERVICE: 12/10/19 Discharge Plan Patient Name: EILEEN HENNESSY Facility: [facility]:[place] : 1940 Planned Disposition: Inpatient Rehab Anticipated Discharge Date: 12/05/19 Discharge Date: 12/09/2019 Expected LOS: 4 Initial Reviewer: [id number] Initial Review Date: 12/01/2019 Generated: 12/10/19 10:01 am Comments DCP- Discharge Planning Updated by [email or web address]: Dagmar Cordoba on 12/09/19 1:[address] PATIENT WILL BE DISCHARGING TO INPATIENT REHAB TODAY I CALLED AND SPOKE TO SON AND IMM GIVEN DCP- Discharge Planning Updated by [id number]: Maria Luisa Quezada on 12/05/19 3:[address] [facility]isha in inpatient rehab states they will accept the patient to their department when medically stable. CM will continue to follow and assist with discharge planning/needs. DCP- Discharge Planning Updated by [email or web address]: Maria Luisa Quezada on 12/05/19 1:[address] Patient Name: EILEEN HENNESSY Admission Status: Elective Accout number: [id number] Admission Date: 12-01-2019 : 1940 Admission Diagnosis:FRACTURE OF UNSP PART OF NECK OF LEFT FEMUR, INIT Attending: NINOSKA EVANS Current LOS: 4 Anticipated DC Date: 12-05-2019 Planned Disposition: Inpatient Rehab Primary Insurance: MEDICARE A & B Discharge Planning Comments: CM met with patient to discuss discharge planning/needs. He is in agreement to inpatient rehab at [facility]. He states he lives with his son and DIL and their child. He asks if I can call his son or daughter for further questions. I called Holly, no answer at his son's number. Holly verifies his address and contact phone numbers. She states that his DIL sets up his pill box and patient no longer drives. States otherwise he is independent. States he does use a walker and they have a wheelchair for outings. She agrees with inpatient rehab when medically stable. CM will continue to follow and assist with discharge planning/needs. Natural Remedy Consultant: Maria Luisarocky Quezada DCP- Discharge Planning Updated by [email or web address]: Dagmar Cordoba on 12/03/19 5:[address] ATTEMPTED TO SEE PATIENT TODAY, BUT HE WAS SLEEPING. CM WILL ATTEMPT AGAIN AT A LATER TIME DCPIA - Discharge Planning Initial Assessment Updated by [id number]: Maria Luisa Quezada on 12/05/19 2:50 pm * Is the patient Alert and Oriented? Yes * How many steps to enter\exit or inside your home? Ramp/0 * PCP Dr. Fall * Pharmacy [facility] on [address] * Preadmission Environment Home with Family * ADLs Partial Dependent * Partial ADLs (Assistance needed) Ambulation Medication Management * Equipment Grab Bars Shower Chair Walker Wheelchair * List name and contact numbers for known caregivers / representatives who currently or will assist patient after discharge: Joey Hennessy - son and [facility] - [phone] Holly Islas - daughter - [phone] * Verbal permission to speak to the caregivers and representatives has been obtained from the patient. Yes * Community resources currently utilized None * Additional services required to return to the preadmission environment? Yes * Can the patient safely return to the preadmission environment? Yes * Has this patient been hospitalized within the prior 30 days at any hospital? No Coverage Notice Reviewer: [id number] - Maria Luisa Quezada Notice Issued Date-Time: 12/05/2019 14:53 Notice Type: Patient Choice Letter Notice Delivered To: Patient Relationship to Patient: Self Cafe Manager Name: Delivery Method: HAND - Hand Delivered Yvette Days: Prior Verbal Notification: Recipient Understood Notice: Yes Recipient Signature: Yes Med Rec Note Co-signed by Attending: Coverage Notice Comment: ALBERTA for [facility] inpatient rehab Reviewer: [id number] - Dagmar Cordoba Notice Issued Date-Time: 12/09/2019 13:59 Notice Type: IM Discharge Notice Notice Delivered To: Patient Relationship to Patient: Cafe Manager Name: Delivery Method: HAND - Hand Delivered Yvette Days: Prior Verbal Notification: Recipient Understood Notice: Yes Recipient Signature: Yes Med Rec Note Co-signed by Attending: Coverage Notice Comment: Last DP export: 12/09/19 1:09 p Patient Name: EILEEN HENNESSY Page [id number] at 0901 All edits/amendments must be made on the electronic document DICTATION DATE: 12/10/19900 COMMISSIONED SALES ASSOCIATE: BARNEY 12/10/19900 RPT#: [id number] DC DATE:12/09/19 STATUS: DIS IN [facility] [address] [place] [address] END OF REPORT
== END 2019-12-09 19:04 | DRG 956 ==
LOC: D.ER 12:20 → D.MS 16:31
PROVIDERS: Family Medicine; Orthopaedic Surgery; ADMIT Family Medicine; ATTEND Family Medicine
PROC: 0SRS0JZ Replacement of Left Hip Joint, Femoral Surface with Synthetic Substitute, Open Approach (ICD-10-PCS; principal; 2019-12-04 08:30)
DX: S72.002A Fracture of unspecified part of neck of left femur, initial encounter for closed fracture (principal); S32.402A Unspecified fracture of left acetabulum, initial encounter for closed fracture; I50.22 Chronic systolic (congestive) heart failure; W19.XXXA Unspecified fall, initial encounter; I25.10 Atherosclerotic heart disease of native coronary artery without angina pectoris; M19.90 Unspecified osteoarthritis, unspecified site; E78.5 Hyperlipidemia, unspecified; M51.36 Other intervertebral disc degeneration, lumbar region; I73.9 Peripheral vascular disease, unspecified; I48.91 Unspecified atrial fibrillation; I11.0 Hypertensive heart disease with heart failure; Z86.73 Personal history of transient ischemic attack (TIA), and cerebral infarction without residual deficits

== ENCOUNTER 2019-12-09 15:50 | Inpatient (IN) | payer MEDICARE, BC ==
[~2019-12-09] VITALS: Ht 162.6 cm; Wt 81.2 kg
[~2019-12-09 15:50] MED LIST changes: +BETAPACE 120 M120 MG PO; +COREG12.5 MG PO; +ELIQUIS2.5 MG PO; +FEXMID7.5 MG PO; +HYDROCODON-ACE1 EA10 PO; +LASIX40 MG PO
--- NOTE | 2019-12-09 19:38 | NUR ---
AWAKE AND ALERT. RESTING IN BED./ ADMITTED TO [facility] EVANS. NOTED LEFT HIP ORIF. O2/3L ON PER NASAL CANNULA. CALL LIGHT IN REACH.
[2019-12-09 20:00] VITALS: BP 112/71
[2019-12-09 22:10] VITALS: BP 121/62; BMI 30.8
--- NOTE | 2019-12-10 00:46 | NUR ---
RESTING IN BED WITH RESPIRATIONS UNLABORED. O2/2L ON PER NASAL CANNULA. NO ACUTE DISTRESS NOTED.
--- NOTE | 2019-12-10 06:29 | NUR ---
MEDICATED FOR PAIN. SEE OCT. RESPIRATIONS UNLABORED. NO ACUTE CHANGES IN CONDITION THIS SHIFT. SMALL AMOUNT OF DRAINAGE NOTED TO DRESSING ON LEFT HIP. WILL CONTINUE TO MONITOR.
[2019-12-10 07:15] LABS: BASOPHILS 0.1 % (0-2); EOSINOPHILS 2.5 % (0-7); HEMATOCRIT 30.8 % (42.0-54.0); HEMOGLOBIN 9.2 g/dL (13.5-17.5); IMMATURE GRANULOCYTES 0.4 % (0-5); MCH 24.6 pg (26.0-34.0); MCHC 29.9 g/dL (31.0-37.0); MCV 82.4 fL (80.0-100.0); PLATELET COUNT 342 10x3/uL (130-400); RBC 3.74 10x6/uL (4.20-6.10); RDW 17.6 % (11.5-14.5)
[2019-12-10 07:32] LABS: ANION GAP 10.1 mmol/L (8-16); CALCIUM 8.1 mg/dL (8.5-10.1); CARBON DIOXIDE 32.4 mmol/L (21.0-32.0); CREATININE - SERUM 1.2 mg/dL (0.6-1.3); POTASSIUM - SERUM 3.5 mmol/L (3.5-5.1)
--- NOTE | 2019-12-10 08:00 | NUR ---
PT EATING BREAKFAST TOLERATING WELL WILL MONITER
[2019-12-10 08:32] VITALS: BP 145/76
--- NOTE | 2019-12-10 12:00 | NUR ---
I have reviewed this patient and I concur with the Shift Assessment completed by the Licensed Practical Nurse today this shift.
[2019-12-10 13:15] VITALS: Ht 162.6 cm; Wt 81.2 kg
--- NOTE | 2019-12-10 13:58 | NUR ---
CARE TEAM MEETING: PATIENT IS NEW TO UNIT AND WILL BE RA AT NEXT MEETING. WILL CONTINUE TO FOLLOW WITH PATIENT.
--- NOTE | 2019-12-10 17:53 | NUR ---
PT RESTING IN BED WITH EYES OPEN CALL LIGHT IN REACH WILL MONITER
--- NOTE | 2019-12-10 18:40 | NUR ---
BEDSIDE REPORT COMPLETE. PT LYING IN BED ON RIGHT SIDE EYES CLOSED RESTING COMFORTABLY. RR EVEN AND UNLABORED. CALL LIGHT AND WATER WITHIN REACH. BED ALARM ON. CPOC
[2019-12-10 21:08] VITALS: BP 107/62
--- NOTE | 2019-12-11 00:29 | NUR ---
PT LYING IN BED ON LEFT SIDE EYES CLOSED RESTING. RR EVEN AND UNLABORED. CALL LIGHT WITHIN REACH. BED ALARM ON. CPOC
--- NOTE | 2019-12-11 02:55 | NUR ---
INCONTINENT CARE PROVIDED. MED VOID. DENIES ANY OTHER NEEDS OR PAIN. CALL LIGHT AND WATER WITHIN REACH. BED ALARM ON. CPOC
--- NOTE | 2019-12-11 05:19 | NUR ---
INCONTINENT CARE PROVIDED. BRIEF CHANGED MED VOID. DENIES ANY OTHER NEEDS OR PAIN. CALL LIGHT WITHIN REACH. BED ALARM ON. CPOC
[2019-12-11 08:15] VITALS: BP 121/67
--- NOTE | 2019-12-11 18:40 | NUR ---
BEDSIDE REPORT COMPLETE. PT LYING IN BED ON RIGHT SIDE EYES CLOSED RESTING. RR EVEN AND UNLABORED. CALL LIGHT WITHIN REACH. BED ALARM ON. CPOC
[2019-12-11 19:30] VITALS: BP 101/44
--- NOTE | 2019-12-11 23:34 | NUR ---
PT LYING IN BED ON RIGHT SIDE EYES CLOSED RESTING. RR EVEN AND UNLABORED. CALL LIGHT WITHIN REACH. BED ALARM ON. CPOC
--- NOTE | 2019-12-12 02:15 | NUR ---
INCONTIENCE CARE PROVIDED LARGE URINE INCONTINENCE. UNDER PADS AND BRIEF CHANGED. CALMOSEPTINE APPLIED TO BUTTOCKS. DENIES ANY OTHER NEEDS OR PAIN. CALL LIGHT AND WATER WITHIN REACH. BED ALARM ON. OC
--- NOTE | 2019-12-12 05:20 | NUR ---
INCONTIENCE CARE PROVIDED. MED VOID. BRIEF CHANGED. CALL LIGHT WITHIN REACH. BED ALARM ON CPOC
[2019-12-12 05:39] LABS: BASOPHILS 0.1 % (0-2); EOSINOPHILS 2.6 % (0-7); HEMATOCRIT 30.7 % (42.0-54.0); HEMOGLOBIN 9.1 g/dL (13.5-17.5); IMMATURE GRANULOCYTES 0.5 % (0-5); MCH 24.3 pg (26.0-34.0); MCHC 29.6 g/dL (31.0-37.0); MCV 82.1 fL (80.0-100.0); MEAN PLATELET VOLUME 8.6 fL (7.4-10.4); MONOCYTES 9.8 % (2-11); PLATELET COUNT 337 10x3/uL (130-400); RBC 3.74 10x6/uL (4.20-6.10); WBC 9.9 10x3/uL (4.8-10.8)
[2019-12-12 05:51] LABS: CALCIUM 8.3 mg/dL (8.5-10.1); CARBON DIOXIDE 32.5 mmol/L (21.0-32.0); CREATININE - SERUM 1.3 mg/dL (0.6-1.3); POTASSIUM - SERUM 3.5 mmol/L (3.5-5.1)
[2019-12-12 08:00] VITALS: BP 105/50
--- NOTE | 2019-12-12 14:31 | NUR ---
Nutrition Follow-up: Pt sleeping soundly at time of visit and did not wake to name being called. Chart reviewed. Diet: Low Residue PO intake: 100% x 3 meals Wt: 179# (12/09) Last BM: 12/10 per chart Labs noted: Ca 8.3 Meds noted: Lasix, Protonix -Encourage PO intake and honor food preferences within diet restrictions. -Monitor wt. -RD following.
[2019-12-12 19:30] VITALS: BP 113/63
--- NOTE | 2019-12-12 19:39 | NUR ---
AWAKE AND RESTING IN BED. RESPIRAITONS UNLABORED. O2 SATURATION 88-93% ON ROOM AIR. O2/2L PLACED ON PER NASAL CANNULA. LEFT HIP DRESSING INTACT WITH SMALL AMOUNT OF OLD DRAINAGE NOTED. WILL CONTNINUE TO MONITOR. CALL LIGHT IN REACH.
--- NOTE | 2019-12-13 03:04 | NUR ---
REQUESTED SNACK . SNACK PROVIDED. NO DISTRESS NOTED.
--- NOTE | 2019-12-13 05:02 | NUR ---
QUIET HOURS. NO ACUTE CHANGES IN CONDITION THIS SHIFT. RESTING IN BED WITH RESPIRATIONS UNLABORED. O2/2L ON PER NASAL CANNULA. CALL LIGHT IN REACH.
--- NOTE | 2019-12-13 07:29 | NUR ---
PT RESTING IN BED EYES CLOSED CALL LIGHT IN REACH WILL MONITER
--- NOTE | 2019-12-13 11:56 | NUR ---
I have reviewed this patient and I concur with the Shift Assessment completed by the Licensed Practical Nurse today this shift.
--- NOTE | 2019-12-13 16:17 | NUR ---
PT RESTING IN BED WITH EYES OPEN CALL LIGHT IN REACH WILL MONITER
[2019-12-13 19:52] VITALS: BP 92/48
--- NOTE | 2019-12-13 20:01 | NUR ---
AWAKE AND ALERT. RESTING IN BED WITH RESPRIATIONS UNLABORED. MEDICATED FOR C/O PAIN. SEE MAR. DRESSING TO LEFT HIP INTACT WITH SMALL AMOUNT OF OLD DRAINAGE NOTED. O2/2L ON PER NASAL CANNULA. NO ACUTE DISTRESS NOTED.
--- NOTE | 2019-12-14 02:17 | NUR ---
INCONTINENCE CARE GIVEN. MEDICATED FOR PAIN. SEE MAR. RESPRIATIONS UNLABORED.
--- NOTE | 2019-12-14 06:20 | NUR ---
QUIET HOURS. NO ACUTE CHANGES IN CONDITION THIS SHIFT. RESTING IN BED WITH NO DISTRESS NOTED.
[2019-12-14 08:00] VITALS: BP 119/60
--- NOTE | 2019-12-14 19:14 | NUR ---
RESTING IN BED WITH RESPIRAITONS UNLABORED. O2/2L ON PER NASAL CANNULA. LEFT HIP DRESSING DRY AND INTACT. NO ACUTE DISTRESS NOTED. CALL LIGHT IN REACH.
[2019-12-14 20:00] VITALS: BP 99/44
--- NOTE | 2019-12-15 00:35 | NUR ---
RESTING IN BED WITH RESPIRATIONS UNLABORED. EYES CLOSED AND NO DISTRESS NOTED.
--- NOTE | 2019-12-15 05:02 | NUR ---
QUIET HOURS NO ACUTE CHANGES IN CONDITION THIS SHIFT. RESTING IN BED WITH RESPIRATIONS UNLABORED. O2/2L ON PER NASAL CANNULA. DRESSING DRY AND INTACT TO LEFT HIP. NO ACUTE DISTRESS NOTED.
[2019-12-15 05:27] LABS: BASOPHILS 0.3 % (0-2); EOSINOPHILS 3.2 % (0-7); HEMATOCRIT 31.6 % (42.0-54.0); HEMOGLOBIN 9.4 g/dL (13.5-17.5); IMMATURE GRANULOCYTES 0.3 % (0-5); MCH 24.6 pg (26.0-34.0); MCHC 29.7 g/dL (31.0-37.0); MCV 82.7 fL (80.0-100.0); MONOCYTES 9.1 % (2-11); NEUTROPHILS 70.1 % (40-80); PLATELET COUNT 354 10x3/uL (130-400); RBC 3.82 10x6/uL (4.20-6.10); RDW 18.4 % (11.5-14.5); WBC 7.3 10x3/uL (4.8-10.8)
[2019-12-15 05:38] LABS: ANION GAP 8.9 mmol/L (8-16); CALCIUM 8.4 mg/dL (8.5-10.1); CARBON DIOXIDE 31.2 mmol/L (21.0-32.0); CREATININE - SERUM 1.6 mg/dL (0.6-1.3); POTASSIUM - SERUM 4.1 mmol/L (3.5-5.1)
[2019-12-15 08:09] VITALS: BP 115/58
--- NOTE | 2019-12-15 10:09 | NUR ---
PATIENT IS ALERT. VERY HARD OF HEARING. CALL LIGHT WITHIN REACH. VOICES NO NEEDS AT THIS TIME. WILL CONTINUE WITH PLAN OF CARE
--- NOTE | 2019-12-15 10:15 | NUR ---
PATIENT IN REHAB ROOM. WORKING WITH PHYSICAL THERAPIST. DENIES ANY PAIN/DISC AT THIS TIME.
[2019-12-15 20:00] VITALS: BP 94/49
--- NOTE | 2019-12-15 23:21 | NUR ---
RECEIVED IN BED, RESTING WITH EYES OPEN. DRESSING TO HIP INTACT. CHANGED BED PAD. VITALS STABLE. DENIES PAIN AT THIS TIME. DENIES NEEDS AT THIS TIME.
--- NOTE | 2019-12-16 00:02 | NUR ---
RESTING IN BED WITH EYES OPEN. WATCHING TV. DENIES NEEDS AT THIS TIME. CALL LIGHT IN REACH.
[2019-12-16 08:00] VITALS: BP 125/66
--- NOTE | 2019-12-16 12:52 | NUR ---
Nutrition follow-up: diet: low residue PO intake 75% of most meals Last wt on admit: 178# +BM PO intake remains good at this time RDN following.
--- NOTE | 2019-12-16 14:47 | RHP ---
PATIENT: EILEEN OSBORN MEDICAL RECORD: [id number] ACCOUNT: [id number] LOCATION:[facility]1108 : 40 ADMISSION DATE: 12/09/19 REHABILITATION HISTORY AND PHYSICAL EXAMINATION POST ADMISSION PHYSICIAN EXAMINATION ADMITTING DIAGNOSIS: Status post fall. HISTORY OF PRESENT ILLNESS: The patient is a 79-year-old gentleman who presented to hospital via direct admit after a fall. He was admitted to the acute rehab for a left femoral neck fracture, nondisplaced fracture of the left acetabulum, slowly progressing. He needs to be monitored closely, on supplemental O2. He has got electrolyte protocol. Pain control, monitor his lab values, proximal muscle weakness, balance deficits, decreased activity, decreased range of motion, decreased strength, gait disturbance, limited safety awareness. He has medical complexity for treatment. He is a risk for fall, resulting in extension of the hip fracture. He needs cues for equipment, low endurance, unsteady gait and balance, fatigues easily, inability to care for himself. These are all barriers to his discharge home. COMORBIDITIES: Include coronary artery disease, hypertension, osteoarthritis. He is hard of hearing. He has got lumbar disk disease, got a closed hip fracture, COPD, hypertension and coronary artery disease. PAST MEDICAL HISTORY: Significant for hypertension, hyperlipidemia, coronary artery disease, osteoarthritis, lumbar disk disease, peripheral vascular disease, coronary artery bypass grafting. PAST SURGICAL HISTORY: Includes lumbar spine surgery and coronary artery bypass grafting. ALLERGIES: PENICILLIN, CODEINE, AND NICOTINE. CURRENT MEDICATIONS: Include Calmoseptine to apply b.i.d., Accupril 40 mg daily, furosemide 40 mg daily, Plavix 75 mg daily, beta carotene 1 tab daily, amlodipine 10 mg daily, carvedilol 12.5 mg b.i.d. with meals, Protonix 40 mg b.i.d., sotalol 120 mg b.i.d., atorvastatin 10 mg at bedtime, Eliquis 2.5 mg b.i.d., [place] 10/325 one tab every 4 hours p.r.n., Flexeril 7.5 mg t.i.d. p.r.n. and Tylenol as needed. HABITS: No alcohol or tobacco use times. FAMILY HISTORY: Noncontributory. SOCIAL HISTORY: The patient hopes to return back home and get back to his prior level of functioning. REVIEW OF SYSTEMS: GENERAL: Does complain of weakness and fatigue. HEENT: Denies cold, cough, or congestion. CARDIOVASCULAR: Denies any chest pain. PHYSICAL EXAMINATION: VITAL SIGNS: Stable, afebrile. GENERAL: A well-developed gentleman in no acute distress upon exam. HISTORY AND PHYSICAL [id number] EILEEN OSBORN HEENT: Normocephalic and atraumatic. Mucosa moist. NECK: Supple. No lymphadenopathy. LUNGS: Clear at this time. No wheezing, rhonchi or rales. HEART: Regular rate and rhythm. No murmurs, rubs or gallops. ABDOMEN: Soft, benign and nondistended. Positive bowel sounds times 4. EXTREMITIES: Does have normal swelling to his hip region. He does have some bruising from previous falls. NEUROLOGIC: He does have some proximal muscle weakness. LABORATORY DATA: White count is 8000, H&H of 9 and 31 and platelet count was noted to be 342. His sodium is 142, potassium 3.5, BUN and creatinine of 18 and 1.2, and blood sugar is not be 97. ASSESSMENT: This is a 79-year-old gentleman admitted to the rehab with a working diagnosis of debility secondary to fall. The patient has potential to make improvement. We instituted the multiple disciplinary therapies including, but not limited to physical, occupational, respiratory, speech, nutritional services, prosthetics and orthotics. Given his complex medical condition and risks for more complications, rehabilitation services cannot be provided at a low level of care such a [facility] facility. PLAN: 1. Admit to [facility] for intensive inpatient therapy to include the following disciplines; A. Physical therapy to improve gait, all transfer skills and bed mobility to a modified independent level. B. Occupational therapy to improve activities of daily living. C. Case management to assist with discharge planning and placement options. D. Nutrition to assist with nutritional needs. E. Rehabilitation nursing to assist in monitoring the patient's underlying medical condition and to assist with any type of bowel or bladder management. 2. The patient's current medication and medical care will be continued. 3. The patient will be placed on standard fall precautions. 4. The patient's estimated length of stay is approximately 7-10 days. 5. We will discuss the patient during care team staff meeting this week. TRANSINT:[id number] Voice Confirmation ID: [id number] DOCUMENT ID: [id number] MARISOL notes whether there has been none or any medical/functional change since admission: - No change since preadmission screen. MARISOL attests patient continues to be appropriate for IRF: - Continues to be appropriate. HISTORY AND PHYSICAL [id number] EILEEN OSBORN,CRHIS HERNANDEZ MD at 1447 CC: [id number] DICTATION DATE: 12/10/19906 [employer] INTERN: 12/10/19 1013 ADM IN [place] [id number] [place] [id number]
[2019-12-16 20:47] VITALS: BP 99/54
--- NOTE | 2019-12-16 20:52 | NUR ---
ASSESSMENT COMPLETED. SEE NURSING ASSESSMENT SHEET. INCONTINENT OF URINE. CLOTHING AND PAD CHANGE. DRESSING CDI TO LEFT HIP. NO C/O VOICED. BED IN LOW POSITION AND CALL LIGHT WITHIN REACH. MED ADMINISTERED WITHOUT DIFFICULTY.
--- NOTE | 2019-12-17 00:52 | NUR ---
RESTING WITH EYES CLOSED. RESP EVEN AND UNLABORED. NO DISTRESS NOTED.
[2019-12-17 07:07] LABS: BASOPHILS 0.3 % (0-2); EOSINOPHILS 2.1 % (0-7); HEMATOCRIT 31.5 % (42.0-54.0); HEMOGLOBIN 9.3 g/dL (13.5-17.5); IMMATURE GRANULOCYTES 0.4 % (0-5); LYMPHOCYTES 15.8 % (15-50); MCH 24.5 pg (26.0-34.0); MCHC 29.5 g/dL (31.0-37.0); MCV 83.1 fL (80.0-100.0); MEAN PLATELET VOLUME 9.1 fL (7.4-10.4); NEUTROPHILS 71.4 % (40-80); PLATELET COUNT 309 10x3/uL (130-400); RBC 3.79 10x6/uL (4.20-6.10); RDW 18.5 % (11.5-14.5); WBC 6.8 10x3/uL (4.8-10.8)
[2019-12-17 07:21] LABS: ANION GAP 12.9 mmol/L (8-16); CALCIUM 8.1 mg/dL (8.5-10.1); CARBON DIOXIDE 28.6 mmol/L (21.0-32.0); CREATININE - SERUM 1.5 mg/dL (0.6-1.3); POTASSIUM - SERUM 4.5 mmol/L (3.5-5.1)
[2019-12-17 08:00] VITALS: BP 116/63
--- NOTE | 2019-12-17 08:00 | NUR ---
PATIENT IS ALERT/ORIENT. VERY HARD OF HEAFING. SITTING UP IN BED TO EAT BREAKFAST. CALL LIGHT WITHIN REACH. VOICES NO NEEDS AT THIS TIME. WILL CONTINUE WITH PLAN OF CARE
--- NOTE | 2019-12-17 10:06 | NUR ---
PATIENT IN REHAB ROOM. WROKING WITH PHYSICAL THERAPIST. DENIES ANY PAIN/DISC AT THIS TIME.
--- NOTE | 2019-12-17 12:00 | NUR ---
I have reviewed this patient and I concur with the Shift Assessment completed by the Licensed Practical Nurse today this shift.
--- NOTE | 2019-12-17 14:49 | NUR ---
CARE TEAM MEETING: PATIENT IS PROGRESSING IN THERAPY, TENATIVE DISCHARGE DATE IS 12/25/19. PATIENT WILL BE RA AT NEXT MEETING. WILL CONTINUE TO FOLLOW WITH PATIENT.
[2019-12-17 19:10] VITALS: BP 96/44
[2019-12-17 19:19] VITALS: BP 130/51
--- NOTE | 2019-12-17 19:20 | NUR ---
AWAKE AND ALERT. RESTING IN BED WITH RESPIRATIONS UNLABORED. DRESSING TO LEFT HIP DRY AND INTACT. NO ACUTE DISTRESS NOTED. CALL LIGHT IN REACH.
--- NOTE | 2019-12-18 00:23 | NUR ---
RESTING IN BED WITH EYES CLOSED AND RESPIRAITONS UNLABORED. NO ACUTE DISTRESS NOTED. CALL LIGHT IN REACH.
--- NOTE | 2019-12-18 02:32 | NUR ---
CONTINUES SLEEPING WITH NO DISTRESS NOTED.
--- NOTE | 2019-12-18 05:03 | NUR ---
ASSISTED TO BATHROOM TO HAVE BM. HAD LARGE FORMED STOOL. ASSISTED BACK TO BED. TOLERATED WELL. NO ACUTE DISTRESS NOTED. NO ACUTE CHANGES IN CONDITION THIS SHIFT.
[2019-12-18 07:50] VITALS: BP 121/65
--- NOTE | 2019-12-18 08:00 | NUR ---
PT RESTING IN BED WITH EYES OPEN CALL LIGHT IN REACH NO PROBLEMS WILL MONITER
[2019-12-18 19:00] VITALS: BP 84/46
--- NOTE | 2019-12-18 19:06 | NUR ---
PT RESTING IN BED WITH EYES OPEN CALL LIGHT IN REACH WILL MONITER
--- NOTE | 2019-12-18 19:40 | NUR ---
RESTING IN BED WITH EYES CLOSED AND RESPIRATIONS UNALBORED. NO ACUTE DISTRESS NOTED. CALL LIGHT IN REACH.
--- NOTE | 2019-12-19 01:42 | NUR ---
INCONTINENCE CARE GIVEN. NO ACUTE DISTRESS NOTED.
[2019-12-19 05:10] LABS: BASOPHILS 0.2 % (0-2); EOSINOPHILS 3.7 % (0-7); HEMATOCRIT 28.7 % (42.0-54.0); HEMOGLOBIN 8.6 g/dL (13.5-17.5); IMMATURE GRANULOCYTES 0.2 % (0-5); LYMPHOCYTES 16.7 % (15-50); MCH 24.6 pg (26.0-34.0); MEAN PLATELET VOLUME 8.6 fL (7.4-10.4); MONOCYTES 10.9 % (2-11); NEUTROPHILS 68.3 % (40-80); PLATELET COUNT 272 10x3/uL (130-400); RDW 18.4 % (11.5-14.5)
--- NOTE | 2019-12-19 05:18 | NUR ---
QUIET HOURS. NO ACUTE CHANGES IN CONDITION THIS SHIFT. O2/2L ON PER NASAL CANNULA. DRESSING INTACT TO LEFT HIP. NO DISTRESS NOTED.
[2019-12-19 05:25] LABS: ANION GAP 11.4 mmol/L (8-16); CALCIUM 8.3 mg/dL (8.5-10.1); CARBON DIOXIDE 28.7 mmol/L (21.0-32.0); CREATININE - SERUM 1.3 mg/dL (0.6-1.3); POTASSIUM - SERUM 4.1 mmol/L (3.5-5.1)
--- NOTE | 2019-12-19 07:24 | NUR ---
PT RESTING IN BED WITH EYES OPEN CALL LIGHT IN REACH WILL MONITER
[2019-12-19 08:00] VITALS: BP 120/52
--- NOTE | 2019-12-19 11:03 | NUR ---
The patient is awake and alert. He is pleasant, denies needs. He is [place], has O2@L/M per NC.
--- NOTE | 2019-12-19 18:45 | NUR ---
BEDSIDE REPORT COMPLETE. PT LYING IN BED ON LEFT SIDE EYES CLOSED RESTING COMFORTABLY. RR EVEN AND UNLABORED. CONTINUES ON 2L VIA NC. LEFT HIP DRESSING C/D/I. CALL LIGHT WITHIN REACH. BED ALARM ON. CPOC
[2019-12-19 20:30] VITALS: BP 110/67
--- NOTE | 2019-12-19 23:54 | NUR ---
PT LYING IN BED WATCHING TV. DENIES ANY NEEDS. CONTINUES ON 2L VIA NC. NO SIGNS OF ACUTE DISTRESS NOTED. CALL LIGHT AND WATER WITHIN REACH. BED ALARM ON. CPOC
--- NOTE | 2019-12-20 02:10 | NUR ---
PT LYING IN BED ON RIGHT SIDE EYES CLOSED RESTING COMFORTABLY. RR EVEN AND UNLABORED. CALL LIGHT WITHIN REACH. BED ALARM ON. CPOC
--- NOTE | 2019-12-20 05:48 | NUR ---
INCONTINENCE CARE PROVIDED. LARGE URINE INCONTINENCE. BRIEF AND CHUX CHANGED CALMOSEPTINE APPLIED TO BUTTOCKS AND SCROTUM. DENIES ANY OTHER NEEDS OR PAIN. CALL LIGHT WITHIN REACH. BED ALARM ON. CPOC
[2019-12-20 08:00] VITALS: BP 105/66
--- NOTE | 2019-12-20 09:22 | NUR ---
PATIENT SITTING UP IN BED FINISHING BREAKFAST. VERY HARD OF HEARING. CALL LIGHT WITHIN REACH. VOICES NO NEEDS AT THIS TIME. WILL CONTINUE WITH PLAN OF CARE
--- NOTE | 2019-12-20 16:17 | NUR ---
SURGICAL CLIPS REMOVED FROM LEFT HIP WITHOUT DIFFICULTY. STERI STRIPS APPLIED
--- NOTE | 2019-12-20 19:00 | NUR ---
BEDSIDE REPORT COMPLETE. PT LYING IN BED AWAKE AND ALERT. HOB ELEVATED. DENIES ANY NEEDS OR PAIN. CONTINUES ON 2L VIA NC. VS STABLE. LEFT HIP INCISION WITH STERI STRIPS WITHOUT REDNESS OR SWELLING. CALL LIGHT WITHIN REACH. BED ALARM ON. CPOC
[2019-12-20 19:37] VITALS: BP 102/52
--- NOTE | 2019-12-20 23:44 | NUR ---
PT LYING IN BED EYES CLOSED RESTING COMFORTABLY. RR EVEN AND UNLABORED. CALL LIGHT WITHIN REACH. BED ALARM ON. CPOC
--- NOTE | 2019-12-21 02:00 | NUR ---
INCONTINENCE CARE PROVIDED. LARGE VOID. DENIES ANY OTHER NEEDS OR PAIN. CPOC
--- NOTE | 2019-12-21 04:13 | NUR ---
PT LYING IN BED EYES CLOSED RESTING QUIETLY. RR EVEN AND UNLABORED. CALL LIGHT WITHIN REACH. BED ALARM ON. CPOC
--- NOTE | 2019-12-21 05:27 | NUR ---
INCONTINENCE CARE PROVIDED. SMALL VOID. DENIES ANY OTHER NEEDS OR PAIN. CALL LIGHT WITHIN REACH. BED ALARM ON. CPOC
[2019-12-21 08:02] VITALS: BP 124/65
--- NOTE | 2019-12-21 09:09 | NUR ---
PATIENT IS ALERT/ORIENT. VERY HARD OF HEARING. INCONT OF B/B. PATIENT CHANGED AND CHANEL CARE GIVEN BY THIS NURSE. CALL LIGHT WITHIN REACH. VOICES NO FURTHER NEEDS AT THIS TIME. WILL CONTINUE WITH PLAN OF CARE
--- NOTE | 2019-12-21 11:30 | NUR ---
PATIENT INCONT OF B/B. HELPED OUT OF BED. MAX OF TWO TO TRANSFER FROM BED TO WHEELCHAIR. SITTING IN WHEELCHAIR TO EAT LUNCH
--- NOTE | 2019-12-21 14:19 | NUR ---
RESTING QUIETLY IN BED. DENIES NEEDS OR C/O. CALL LIGHT IN REACH
--- NOTE | 2019-12-21 18:55 | NUR ---
BEDSIDE REPORT COMPLETE. PT LYING IN BED ON LEFT SIDE EYES CLOSED RESTING QUIETLY. RR EVEN AND UNLABORED. CONTINUES ON 2L VIA NC. VS STABLE. CALL LIGHT WITHIN REACH. BED ALARM ON. CPOC
[2019-12-21 19:00] VITALS: BP 111/66
--- NOTE | 2019-12-21 23:20 | NUR ---
INCONTINENCE CARE PROVIDED. LARGE VOID. DENIES ANY OTHER NEEDS. CALL LIGHT WITHIN REACH. BED ALARM ON. CPOC
--- NOTE | 2019-12-22 02:07 | NUR ---
PT LYING IN BED EYES CLOSED RESTING COMFORTABLY. RR EVEN AND UNLABORED CONTINUES ON 2L VIA NC. CALL LIGHT WITHIN REACH. BED ALARM ON. WILL CONTINUE TO MONITOR
--- NOTE | 2019-12-22 05:15 | NUR ---
INCONTINENCE CARE PROVIDED. LARGE VOID. CALMOSEPTINE APPLIED TO BUTTOCKS AND SCROTUM. EARLY AM MEDS ADMINISTERED WITHOUT DIFFICULTY. DENIES ANY OTHER NEEDS OR PAIN. CONTINUES ON 2L VIA NC. CALL LIGHT AND WATER WITHIN REACH. FALL PRECAUTIONS IN PLACE. CPOC
[2019-12-22 05:45] LABS: BASOPHILS 0.2 % (0-2); EOSINOPHILS 2.2 % (0-7); HEMATOCRIT 30.6 % (42.0-54.0); HEMOGLOBIN 8.9 g/dL (13.5-17.5); IMMATURE GRANULOCYTES 0.2 % (0-5); LYMPHOCYTES 16.9 % (15-50); MCH 24.4 pg (26.0-34.0); MCHC 29.1 g/dL (31.0-37.0); MCV 83.8 fL (80.0-100.0); MEAN PLATELET VOLUME 8.9 fL (7.4-10.4); MONOCYTES 11.5 % (2-11); PLATELET COUNT 260 10x3/uL (130-400); RBC 3.65 10x6/uL (4.20-6.10); RDW 18.2 % (11.5-14.5); WBC 5.9 10x3/uL (4.8-10.8)
[2019-12-22 06:01] LABS: ANION GAP 11.4 mmol/L (8-16); CALCIUM 8.8 mg/dL (8.5-10.1); CREATININE - SERUM 1.3 mg/dL (0.6-1.3); POTASSIUM - SERUM 4.4 mmol/L (3.5-5.1)
[2019-12-22 07:55] VITALS: BP 123/72
--- NOTE | 2019-12-22 13:33 | NUR ---
Nutrition Follow-up: Received call from pt's nurse, Leilani, reporting pt not eating well and not happy with meals. Visited with pt during lunch. He states that he doesn't usually eat well in the hospital. Likes only chocolate Ensure. Diet: Low Residue Wt: 179# (12/09) Labs reviewed Meds noted: Lasix, Protonix -Liberalize diet 2/2 decreased PO intake and advanced age. -Encourage PO intake and honor food preferences. -Rec new wt. -RD following.
--- NOTE | 2019-12-22 18:40 | NUR ---
BEDSIDE REPORT COMPLETE. PT LYING IN BED ON LEFT SIDE EYES CLOSED RESTING. RR EVEN AND UNLABORED. CALL LIGHT WITHIN REACH. FALL PRECAUTIONS IN PLACE. CPOC
[2019-12-22 20:40] VITALS: BP 100/62
--- NOTE | 2019-12-22 22:57 | NUR ---
PT LYING IN BED ON RIGHT SIDE EYES CLOSED RESTING. RR EVEN AND UNLABORED. CALL LIGHT WITHIN REACH. FALL PRECAUTIONS IN PLACE. WILL CONTINUE TO MONITOR
--- NOTE | 2019-12-23 02:55 | NUR ---
INCONTINENCE CARE PROVIDED. LARGE VOID. COMPLETE LINEN CHANGE. PT DENIES ANY OTHER NEEDS OR PAIN. CALL LIGHT WITHIN REACH. FALL PRECAUTIONS IN PLACE. CPOC
--- NOTE | 2019-12-23 06:20 | NUR ---
INCONTINENCE CARE PROVIDED. MED VOID. CALMOSEPTINE APPLIED TO BUTTOCKS. DENIES ANY OTHER NEEDS OR PAIN. CALL LIGHT WITHIN REACH. CPOC
[2019-12-23 08:00] VITALS: BP 138/79
--- NOTE | 2019-12-23 08:00 | NUR ---
PT RESTING IN BED WITH EYES OPEN CALL LIGHT IN REACH WILL MONITER
--- NOTE | 2019-12-23 10:00 | NUR ---
I have reviewed this patient and I concur with the Shift Assessment completed by the Licensed Practical Nurse today this shift.
--- NOTE | 2019-12-23 15:14 | NUR ---
SPOKE WITH PATIENT AND FAMILY AND EVERYONE AGREES THAT PATIENT NEEDS TO DISCHARGE TO SNF. WILL MAKE A REFERRAL TO [facility]. WILL CONTINUE TO FOLLOW WITH PATIENT.
--- NOTE | 2019-12-23 18:06 | NUR ---
PT RESTING IN BED WITH EYES OPEN CALL LIGHT IN REACH NO PROBLEMS WILL MONITERS
--- NOTE | 2019-12-23 20:08 | NUR ---
AWAKE AND ALERT. VOMITED LARGE AMOUNT OF UNDIGESTED FOOD. CLEANED UP AND HEAD OF BED ELEVATED. WILL MONITOR. CALL LIGHT IN REACH,
[2019-12-23 23:05] VITALS: BP 130/71
--- NOTE | 2019-12-24 03:29 | NUR ---
RESTING IN BED. RESPIRATIONS UNLABORED. NO DISTRESS NOTED.
[2019-12-24 07:24] LABS: BASOPHILS 0.4 % (0-2); HEMATOCRIT 31.7 % (42.0-54.0); HEMOGLOBIN 9.3 g/dL (13.5-17.5); IMMATURE GRANULOCYTES 0.2 % (0-5); LYMPHOCYTES 22.5 % (15-50); MCH 24.3 pg (26.0-34.0); MCHC 29.3 g/dL (31.0-37.0); MEAN PLATELET VOLUME 8.9 fL (7.4-10.4); MONOCYTES 10.7 % (2-11); NEUTROPHILS 63.2 % (40-80); PLATELET COUNT 265 10x3/uL (130-400); RBC 3.82 10x6/uL (4.20-6.10); WBC 5.3 10x3/uL (4.8-10.8)
[2019-12-24 07:35] LABS: ANION GAP 11.2 mmol/L (8-16); CALCIUM 8.6 mg/dL (8.5-10.1); CARBON DIOXIDE 31.2 mmol/L (21.0-32.0); CREATININE - SERUM 1.2 mg/dL (0.6-1.3); POTASSIUM - SERUM 4.4 mmol/L (3.5-5.1)
[2019-12-24 08:00] VITALS: BP 147/78
--- NOTE | 2019-12-24 08:00 | NUR ---
PATIENT IS ALERT/ORIENT. VERY HARD OF HEARING. CALL LIGHT WITHIN REACH. VOICES NO NEEDS AT THIS TIME. WILL CONTINUE WITH PLAN OF CARE
--- NOTE | 2019-12-24 10:00 | NUR ---
I have reviewed this patient and I concur with the Shift Assessment completed by the Licensed Practical Nurse today this shift.
--- NOTE | 2019-12-24 10:43 | NUR ---
PATIENT HELPED WITH SHOWER BY NURSE ASST.
--- NOTE | 2019-12-24 16:05 | NUR ---
CARE TEAM MEETING: PATIENT IS PROGRESSING IN THERAPY BUT AT THIS TIME IT IS RECCOMENDED THAT PATIENT BE DISCHARGED TO A SNF. A REFERRAL HAS BEEN FAXED. WILL CONTINUE TO FOLLOW WITH PATIENT.
--- NOTE | 2019-12-24 19:00 | NUR ---
RECEIVED PT LYING IN BED EYES CLOSED RESTING COMFORTABLY. RR EVEN AND UNLABORED. CALL LIGHT WITHIN REACH. BED ALARM ON. CPOC
[2019-12-24 20:33] VITALS: BP 124/61
--- NOTE | 2019-12-25 00:24 | NUR ---
PT LYING IN BED EYES CLOSED RESTING QUIETLY. RR EVEN AND UNLABORED. CALL LIGHT WITHIN REACH. CPOC
--- NOTE | 2019-12-25 03:37 | NUR ---
PT LYING IN BED EYES CLOSED RESTING QUIETLY. RR EVEN AND UNLABORED. CALL LIGHT WITHIN REACH. BED ALARM ON. CPOC
--- NOTE | 2019-12-25 05:10 | NUR ---
INCONTINENCE CARE PROVIDED. MED VOID. CALL LIGHT WITHIN REACH. BED ALARM ON. CPOC
[2019-12-25 08:00] VITALS: BP 128/73
--- NOTE | 2019-12-25 08:00 | NUR ---
PT RESTING IN BED WITH EYES OPEN CALL LIGHT IN REACH WILL MONITER. EATING BREAKFST NO PROBLEMS AT THIS TIME WILL MONITER
[2019-12-25] MEDS ORDERED: HYDROCODON-ACE1 EA10 PO (09:04)
--- NOTE | 2019-12-25 10:32 | NUR ---
PATIENT DISCHARGING TO [facility]. NO HOME HEALTH OR DME NEEDED AT THIS TIME. AN APPOINTMENT WITH DR. HOWARD AND DR. SULLIVAN WILL BE MADE AT TIME OF DISCHARGE FROM FACILITY. ALBERTA FOR SNF AND IMM SERVED AND EXPLAINED TO PATIENT SIGNED, ONE GIVEN TO PATIENT AND ONE FILED IN CHART. DISCHARGE INSTRUCTIONS FAXED TO PCP, SNF AND REVIEWED WITH PATIENT. NO COMPARE DATA REVIEWED PATIENT FAMILY HAS CHOSEN [facility].
--- NOTE | 2019-12-25 16:30 | NUR ---
[facility] DIS[facility]IA PIPE SMOKING MACHINE OPERATOR REPORT CALLED TO [facility] DISCHARGE SUMMARY AND MEDS SENT WITH PIPE SMOKING MACHINE OPERATOR TOLERATED WELL
== END 2019-12-25 17:39 | DRG 560 ==
LOC: D.REHAB 15:50
PROVIDERS: ADMIT Emergency Medicine; ATTEND Emergency Medicine
DX: S72.002D Fracture of unspecified part of neck of left femur, subsequent encounter for closed fracture with routine healing (principal); I50.22 Chronic systolic (congestive) heart failure; S32.402D Unspecified fracture of left acetabulum, subsequent encounter for fracture with routine healing; I25.10 Atherosclerotic heart disease of native coronary artery without angina pectoris; M19.90 Unspecified osteoarthritis, unspecified site; E78.5 Hyperlipidemia, unspecified; M51.36 Other intervertebral disc degeneration, lumbar region; I73.9 Peripheral vascular disease, unspecified; W19.XXXD Unspecified fall, subsequent encounter; I11.0 Hypertensive heart disease with heart failure; I48.91 Unspecified atrial fibrillation

== ENCOUNTER 2020-05-19 04:29 | Inpatient (IN) | payer MEDICARE, BC ==
[~2020-05-19] VITALS: Ht 162.6 cm; Wt 90.7 kg
--- NOTE | ~2020-05-19 | EC ---
PATIENT:EILEEN OSBORN DATE OF SERVICE: 05/19/20 SEX: M MEDICAL RECORD: [id number] DATE OF : 40 LOCATION:[address]. [address]211 AGE OF PATIENT: 79 ADMISSION DATE: 05/19/20 REFERRING PHYSICIAN: INTERPRETING PHYSICIAN: IGGY DUDLEY MD ECHOCARDIOGRAM REPORT ECHO CHARGES 4 ECHO COMPLETE Date: 05/21/20 CLINICAL DIAGNOSIS: CP ECHOCARDIOGRAPHIC MEASUREMENTS (adult normal given) AC root (d.<3.7cm) 2.6 cm LV Septum d (<1.2 cm> 1.3 cm Valve Excursion 1.5 cm LV Septum (systole) 1.9 cm Left Atria (s.<4.0cm> 5.6 cm LVPW d(<1.2cm) 1.0 cm RV (d.<2.3cm) 2.9 cm LVPW (sytole) 1.5 cm LV diastole(<5.6CM) 4.9 cm MV E-F(>70mm/sec) cm LV systole 2.4 cm LVOT Diameter 1.8 cm MV exc.(>10mm) 1.4 cm Est.ejection fraction (50-75%) % DOPPLER: LVIT cm/sec A 52 cm/sec E 100 cm/sec LA cm/sec RVSP 38 mmHg LVOT 89 cm/sec AOP1/2T m/s Asc. Ao 159 cm/sec RVOT 57 cm/sec RA cm/sec PA 96 cm/sec AV Gradient Peak 10.1 mmHg AV Mean 6.0 mmHg AV Area 1.5 cm MV Gradient Peak 5.8 mmHg MV Mean 1.8 mmHg MV Area cm COMMENTS: Chinese Teacher: [facility] Lens Blocker: 2 Dr. Brown TAPE# PACS Pericardial Effusion N DATE OF SERVICE: ECHOCARDIOGRAM FINDINGS: Normal left ventricular chamber size and contractile function with ejection fraction approximately 55-60%. Right atrial and right ventricular chamber size function appears normal. Mild left atrial chamber enlargement. Right atrial appears normal. Mild thickening of the mitral valve, otherwise unremarkable. Trace mitral regurgitation. Mild thickening and calcification of the aortic valve. Trileaflet valve. Mild aortic regurgitation. Tricuspid ECHOCARDIOGRAM REPORT [id number] EILEEN OSBORN valve - appears normal. Mild tricuspid regurgitation. No pericardial effusion. IMPRESSION: Normal left ventricular chamber size and contractile function with ejection fraction of approximately 55%. TRANSINT:[id number] Voice Confirmation ID: [id number] DOCUMENT ID: [id number] IGGY DUDLEY MD CC: [id number] DICTATION DATE: 05/22/20 1044 CYBER SECURITY CONSULTANT: 05/22/20 1232 ADM IN [facility] [address] [place] [id number]
[2020-05-19 04:52] LABS: BASOPHILS 0.2 % (0-2); EOSINOPHILS 3.6 % (0-7); HEMATOCRIT 35.6 % (42.0-54.0); IMMATURE GRANULOCYTES 0.2 % (0-5); LYMPHOCYTES 14.7 % (15-50); MCH 25.6 pg (26.0-34.0); MCHC 30.9 g/dL (31.0-37.0); MEAN PLATELET VOLUME 8.6 fL (7.4-10.4); MONOCYTES 6.7 % (2-11); NEUTROPHILS 74.6 % (40-80); PLATELET COUNT 248 10x3/uL (130-400); RBC 4.29 10x6/uL (4.20-6.10); RDW 18.2 % (11.5-14.5); WBC 8.4 10x3/uL (4.8-10.8)
[2020-05-19 05:00] VITALS: BP 180/86
[2020-05-19 05:05] LABS: CALC OSMOLALITY 280 mosm/kg (275-300); CALCIUM 9.1 mg/dL (8.5-10.1); CARBON DIOXIDE 27.8 mmol/L (21.0-32.0); CHLORIDE - SERUM 102 mmol/L (98-107); CREATININE - SERUM 1.5 mg/dL (0.6-1.3); POTASSIUM - SERUM 4.2 mmol/L (3.5-5.1); SODIUM 137 mmol/L (136-145); UREA NITROGEN 22 mg/dL (7-18); eGFR NON AFRICAN AMERICAN 48 mL/min (90-120)
[2020-05-19 05:16] LABS: GLUCOSE 169 mg/dL (74-106)
[2020-05-19 05:19] LABS: ALBUMIN 3.7 g/dL (3.4-5.0); ALKALINE PHOSPHATASE 119 U/L (30-120); ALT (SGPT) 14 U/L (10-68); BILIRUBIN - TOTAL 0.37 mg/dL (0.2-1.3); CKMB 1.3 U/L (0.0-3.6); CREATINE KINASE 58 UL (21-232); PRO BNP 2155 pg/mL (0-450); PROTEIN - SERUM 8.6 g/dL (6.4-8.2); TROPONIN-I < 0.017 ng/mL (0.000-0.060)
--- NOTE | 2020-05-19 05:20 | NUR ---
PT RESTING WITH EYES CLOSED. STILL NOTED ACCESSORY USE WHILE BREATHING, EDP NOTIFIED AND NO VERBAL ORDERS RECEIVED. CALL LIGHT WITHIN REACH.
[2020-05-19 05:35] LABS: APTT 31.2 SECONDS (22.8-39.4); INR 1.06 (0.85-1.17); PROTIME 13.7 SECONDS (11.6-15.0)
[2020-05-19 06:01] VITALS: BP 177/108
[2020-05-19] MEDS ORDERED: BETAPACE 120 M120 MG PO (12:49)
[2020-05-19 13:54] VITALS: BP 135/76; BMI 34.4
[2020-05-19 16:43] VITALS: BP 143/81
[2020-05-19 20:00] VITALS: BP 108/57
[2020-05-20 06:42] LABS: BASOPHILS 0 % (0-2); EOSINOPHILS 0 % (0-7); HEMATOCRIT 30.8 % (42.0-54.0); HEMOGLOBIN 9.8 g/dL (13.5-17.5); IMMATURE GRANULOCYTES 0.2 % (0-5); LYMPHOCYTES 9.4 % (15-50); MCH 25.7 pg (26.0-34.0); MCHC 31.8 g/dL (31.0-37.0); MEAN PLATELET VOLUME 9.1 fL (7.4-10.4); MONOCYTES 4.5 % (2-11); NEUTROPHILS 85.9 % (40-80); PLATELET COUNT 232 10x3/uL (130-400); RBC 3.82 10x6/uL (4.20-6.10); WBC 9.3 10x3/uL (4.8-10.8)
[2020-05-20 06:43] LABS: MCV 80.6 fL (80.0-100.0)
[2020-05-20 06:52] LABS: ALBUMIN 3.1 g/dL (3.4-5.0); ANION GAP 9.5 mmol/L (8-16); BILIRUBIN - TOTAL 0.57 mg/dL (0.2-1.3); CALCIUM 9.1 mg/dL (8.5-10.1); CARBON DIOXIDE 28.3 mmol/L (21.0-32.0); CREATININE - SERUM 1.3 mg/dL (0.6-1.3); POTASSIUM - SERUM 3.8 mmol/L (3.5-5.1); PROTEIN - SERUM 7.3 g/dL (6.4-8.2)
[2020-05-20 08:05] LABS: TROPONIN-I 0.865 ng/mL (0.000-0.060)
[2020-05-20 08:22] VITALS: BP 133/71
--- NOTE | 2020-05-20 08:45 | NUR ---
WAS NOTIFIED BY ANOTHER NURSE AT THIS TIME THAT PT HAD AND ELEVATED TROPIN OF 0.865. CALL WAS PLACED TO DR. HOWARD OFFICE SPOKE WITH NURSE ALVAREZ AT THIS TIME AND SHE STATED THAT SHE WOULD INFORM ON LAB. NO NEW ORDERS NOTED AT THIS TIME.
--- NOTE | 2020-05-20 09:11 | HP ---
PATIENT: EILEEN OSBORN MEDICAL RECORD: [id number] ACCOUNT: [id number] LOCATION:[address] : 40 ADMISSION DATE: 05/19/20 PCP: HANK HOWARD MD HISTORY AND PHYSICAL EXAMINATION DATE OF ADMISSION: 05/19/2020 CHIEF COMPLAINT: Shortness of breath. HISTORY OF PRESENT ILLNESS: This is a 79-year-old white male whom I have followed for many years. He has hypertension, heart disease, hyperlipidemia, arthritis, atrial fibrillation, hip fracture, and very hard of hearing. He states last night he had sudden onset shortness of breath. He just could not get his breath. He denies any chest pain. He denied diaphoresis, nausea or vomiting. He was brought to the Emergency Room via EMS. He was on CPAP at that time. In the ER, his cardiac enzymes were negative. His blood gas showed a pH of 7.29, pCO2 of 55, pO2 of 69. Chest x-ray read as early pneumonia in the bases bilaterally. He is admitted for further care. PAST MEDICAL HISTORY: Again, hypertension, coronary artery disease, hyperlipidemia, osteoarthritis, atrial fibrillation and a hip fracture in 12/2019 and probable COPD. PAST SURGICAL HISTORY: Coronary artery bypass graft, lumbar spine surgery by Dr. Armenta in 2011, ORIF left hip fracture in December 2019. ALLERGIES: PENICILLIN. HOME MEDICATIONS: Albuterol HFA p.r.n., atorvastatin 10 mg once a day, Percocet 10 t.i.d. p.r.n. pain, sotalol 120 mg 1/2 b.i.d., Lasix 20 mg 2 a day, cyclobenzaprine p.r.n., Plavix 75 mg once a day, ipratropium nasal spray p.r.n., Centrum Silver multivitamin once a day, omeprazole 20 mg twice a day, amlodipine 10 mg once a day, Ocuvite once a day, aspirin 325 mg once a day, quinapril 40 mg once a day, and carvedilol 25 mg one half b.i.d. HABITS: Unfortunately, he continues to smoke. He denies any history of alcohol or illicit drug use. SOCIAL HISTORY: He is retired. He is . He lives with family. FAMILY HISTORY: Noncontributory. REVIEW OF SYSTEMS: GENERAL: No major weight changes. HEENT: No particular sinus or allergy problems. RESPIRATORY: No diagnosis of COPD, though with his long smoking history and he continues to smoke. There is no doubt in my mind he has COPD. GASTROINTESTINAL: He has heartburn. GENITOURINARY: No significant problems there. MUSCULOSKELETAL: Has chronic low back pain. He has had lumbar spine surgery by Dr. Armenta in 2011. NEUROLOGIC: No migraines. No seizures. PSYCHIATRIC: Denies depression or melancholia. PHYSICAL EXAMINATION: HISTORY AND PHYSICAL [id number] EILEEN OSBORN VITAL SIGNS: Temperature 98.2, pulse 101, respirations 26, blood pressure 135/76, O2 sat 96%. GENERAL: He is hard of hearing, but he wakes up easily. He knows who I am. He does not appear in acute distress now. HEENT: Grossly within normal limits. NECK: Supple. No JVD or bruit. HEART: Regular rate and rhythm. LUNGS: Fairly clear, some distant breath sounds. ABDOMEN: Soft, flat, nontender. EXTREMITIES: No edema. NEUROLOGIC: Intact. LABORATORY DATA: CBC with a white count of 8400, hemoglobin 11.0, and hematocrit 35.6. BMP: Sodium 137, potassium 4.2, chloride 102, CO2 27.8, BUN 22, creatinine 1.5, glucose 169, and calcium 9.1. INR 1.06. Liver functions are normal. Troponin less than 0.017. Blood gas; pH 7.29, pCO2 of 55, pO2 of 69. IMAGING: Chest x-ray was read as development of bibasilar airspace disease compatible with atelectasis or early pneumonitis. ASSESSMENT: 1. Pneumonia. 2. Most likely chronic obstructive pulmonary disease. 3. Long time smoker. 4. Hypertension. 5. History of coronary artery disease. PLAN: His breathing got better with updraft and Lasix in the ED. We will admit and continue some mild diuresis. Start Zithromax and Rocephin. Blood cultures times 2. We will probably ask pulmonary to see. Other tests or procedures as warranted. TRANSINT:[id number] Voice Confirmation ID: [id number] DOCUMENT ID: [id number] HANK HOWARD MD at 0911 CC: [id number] DICTATION DATE: 05/20/20104 CONTACT CENTER ASSISTANT: 05/20/20 0137 ADM IN [facility] [address] [id number]
[2020-05-20 12:23] VITALS: BP 122/61
[2020-05-20 12:27] VITALS: Ht 162.6 cm; Wt 90.7 kg
--- NOTE | 2020-05-20 13:33 | NUR ---
I have reviewed this patient and I concur with the Shift Assessment completed by the Licensed Practical Nurse today this shift.
[2020-05-20 15:24] VITALS: BP 104/52
[2020-05-20 20:22] VITALS: BP 112/49
[2020-05-21 00:32] VITALS: BP 114/54
[2020-05-21 04:30] VITALS: BP 133/65
[2020-05-21 09:27] VITALS: BP 116/56
[2020-05-21 13:00] VITALS: BP 129/77
[2020-05-21 17:18] VITALS: BP 111/65
[2020-05-21 20:00] VITALS: BP 121/64
--- NOTE | 2020-05-21 20:01 | NUR ---
INITIAL ROUNDS AND ASSESSMENT COMPLETED. CALL LIGHT IN REACH. NO DISTRESS.
--- NOTE | 2020-05-21 20:56 | NUR ---
BEDTIME MEDS GIVEN. IVF AT [facility] TO RFA. PT WATCHING TV. CPOC. CALL LIGHT IN REACH.
--- NOTE | 2020-05-21 23:01 | NUR ---
C/O MUSCLE SPASMS. REQUESTED FLEXERIL GIVEN. CALL LIGHT IN REACH. CPOC.
[2020-05-22 08:24] VITALS: BP 125/53
--- NOTE | 2020-05-22 09:30 | NUR ---
HELPED PT TO BATHROOM AND BACK TO BED. COMPLETE LINEN CHANGE DONE AT THIS TIME. WHEN PT WAS WIPING HIS BOTTOM HE BUMPED HIS HAND ON THE COMMODE AND MADE A SKIN TEAR TO TO LT HAND. CLEANED SITE AND APPLIED DRESSING TO IT. PT DENIES ANY OTHER NEEDS AT HTIS TIME. CALL LIGHT IN REACH, NAD NOTED, WILL CONTINUE TO MONITOR.
[2020-05-22 12:10] VITALS: BP 97/47
[2020-05-22 16:24] VITALS: BP 111/52
--- NOTE | 2020-05-22 16:46 | NUR ---
PT FIXING TO EAT DINNER, DENIES ANY NEEDS AT THIS TIME. EMPTIED 800CC OF DIOGO URINE OUT OF SANTIAGO CATHTER. CALL LIGHT IN REACH, WILL CONTINUE PLAN OF CARE.
--- NOTE | 2020-05-22 20:00 | NUR ---
INITIAL ROUNDS AND ASSESSMENT COMPLETED. PT ALERT/ORIENTED/VERY CHALKYITSIK. MEDICATED WITH NORCO FOR CHRONIC BACK PAIN AT THIS TIME. IV TO RFA SALINE LOCKED. O2 @ 3L/NC WITH NONLABORED RESPIRATIONS. CALL LIGHT IN REACH. SR UP X 2. CPOC.
[2020-05-22 21:14] VITALS: BP 109/45
--- NOTE | 2020-05-22 23:00 | NUR ---
PT RESTING. SCHEDULED SOLUMEDROL GIVEN. IV SHOWING SOME DIFFICULTY FLUSHING. REMOVED AND WILL RESITE.
--- NOTE | 2020-05-23 02:19 | NUR ---
REQUESTED NADIA GUTIERREZ BECAUSE HE IS HUNGRY. HAS HIS DAYS AND NIGHTS TURNED AROUND. BRENDA PROVIDED. SR UP X 2. CALL LIGHT IN REACH.
[2020-05-23 04:00] VITALS: BP 109/48
[2020-05-23 04:54] LABS: BASOPHILS 0 % (0-2); EOSINOPHILS 0 % (0-7); HEMATOCRIT 29.8 % (42.0-54.0); HEMOGLOBIN 9.3 g/dL (13.5-17.5); IMMATURE GRANULOCYTES 0.2 % (0-5); LYMPHOCYTES 5.2 % (15-50); MCH 25.1 pg (26.0-34.0); MCHC 31.2 g/dL (31.0-37.0); MCV 80.3 fL (80.0-100.0); MONOCYTES 5.5 % (2-11); NEUTROPHILS 89.1 % (40-80); PLATELET COUNT 231 10x3/uL (130-400); RBC 3.71 10x6/uL (4.20-6.10); RDW 17.4 % (11.5-14.5)
[2020-05-23 05:01] LABS: ANION GAP 10.9 mmol/L (8-16); CALCIUM 8.3 mg/dL (8.5-10.1); CARBON DIOXIDE 29.1 mmol/L (21.0-32.0); CREATININE - SERUM 1.7 mg/dL (0.6-1.3)
[2020-05-23 08:13] VITALS: BP 123/60
--- NOTE | 2020-05-23 09:40 | NUR ---
UP AMBULATING HALLWAY WITH PT ASSIST.
[2020-05-23 11:55] VITALS: BP 105/47
--- NOTE | 2020-05-23 14:03 | NUR ---
DR. VACA NOTIFIED OF RIGHT THIHG HEMATOMA. NEW ORDERS GIVEN.
[2020-05-23 16:21] VITALS: BP 106/47
[2020-05-23 18:56] VITALS: BP 106/97
--- NOTE | 2020-05-23 20:28 | NUR ---
INITIAL ROUNDS AND ASSESSMENT COMPLETED. PT RESTING IN BED. O2 @ 3L/HFNC WITH SHALLOW/NONLABORED RESPIRATIONS AT REST. SANTIAGO PATENT TO BEDSIDE DRAIN BAG. SALINE LOCK TO RIGHT WRIST. DRESSING TO LEFT HAND OVER SKIN TEAR. SR UP X 2, CALL LIGHT IN REACH. CPOC.
[2020-05-24 03:54] VITALS: BP 137/45
[2020-05-24 07:17] VITALS: BP 100/70
[2020-05-24 07:44] VITALS: BP 148/67
--- NOTE | 2020-05-24 11:35 | MORECARE ---
CASE MANAGEMENT DISCHARGE SUMMARY PATIENT: EILEEN HENNESSY UNIT: [id number] ADM DATE: 05/19/20 AGE: 79 : 40 SEX: M ROOM/BED: D.2112 AUTHOR: WENCESLAO SCOTT PHYSICIAN: REFERRING PHYSICIAN: HANK HOWARD MD DATE OF SERVICE: 05/24/20 Discharge Plan Patient Name: EILEEN HENNESSY [facility] [facility] 1940 Planned Disposition: Home with Home Health Anticipated Discharge Date: Discharge Date: Expected LOS: Initial Reviewer: [email or web address] Initial Review Date: 05/24/2020 Generated: 05/24/20 12:34 pm DCPIA - Discharge Planning Initial Assessment Updated by [email or web address]: Maria Luisa Quezada on 05/24/20 11:34 am * Is the patient Alert and Oriented? Yes * How many steps to enter\exit or inside your home? 0/0 * PCP Dr. Howard * Pharmacy [facility] * Preadmission Environment Home with Family * ADLs Partial Dependent * Partial ADLs (Assistance needed) Ambulation Medication Management * Equipment Other Shower Chair Walker Wheelchair * Other Equipment Blood pressure cuff Scales * List name and contact numbers for known caregivers / representatives who currently or will assist patient after discharge: Giana Hennessy [facility] - [phone] Marino Hennessy [facility] - [phone] [place] - [phone] * Verbal permission to speak to the caregivers and representatives has been obtained from the patient. Yes * Community resources currently utilized None * Additional services required to return to the preadmission environment? Yes * Can the patient safely return to the preadmission environment? Yes * Has this patient been hospitalized within the prior 30 days at any hospital? No Patient Name: EILEEN HENNESSY Page [id number] at 1135 All edits/amendments must be made on the electronic document DICTATION DATE: 05/24/20 1134 MARKETING ANALYTICS LEAD: BARNEY 05/24/20 1134 RPT#: [id number] DC DATE: STATUS: ADM IN [facility] [address] [place] [address] END OF REPORT
[2020-05-24 11:40] VITALS: BP 118/60
--- NOTE | 2020-05-24 11:44 | MORECARE ---
CASE MANAGEMENT DISCHARGE SUMMARY PATIENT: EILEEN HENNESSY UNIT: [id number] ADM DATE: 05/19/20 AGE: 79 : 40 SEX: M ROOM/BED: D.5 AUTHOR: WENCESLAO SCOTT PHYSICIAN: REFERRING PHYSICIAN: HANK HOWARD MD DATE OF SERVICE: 05/24/20 Discharge Plan Patient Name: EILEEN HENNESSY Facility: [facility]:[place] : 1940 Planned Disposition: Home with Home Health Anticipated Discharge Date: Discharge Date: Expected LOS: Initial Reviewer: [email or web address] Initial Review Date: 05/24/2020 Generated: 05/24/20 12:43 pm Comments DCP- Discharge Planning Updated by [email or web address]: Maria Luisa Quezada on 05/24/20 10:[address] Patient Name: EILEEN HENNESSY Admission Status: ER Accout number: [id number] Admission Date: 05-19-2020 : 1940 Admission Diagnosis:SHORTNESS OF BREATH Attending: HANK HOWARD Current LOS: 5 Anticipated DC Date: Planned Disposition: Home with Home Health Primary Insurance: MEDICARE A & B Discharge Planning Comments: CM met with patient to complete initial dc planning assessment. CM educated patient on the CM role and verbal consent given by patient to complete assessment. Patient lives at home with his son (Marino) and DIL (Giana). At discharge patient plans to return and feels this is a safe discharge. CM discussed availability of home health, rehab services, and medical equipment. Patient states he has had home health before and unsure which company he used, he would like me to call his son or DIL. He also states he had [employer] for his 's oxygen and does not want to use [employer] for oxygen if needed. I spoke with his DIL (Giana) and she discussed with her and they would like him to come home with [employer] and use [employer] as oxygen DME company if needed. I spoke with Ray with [employer] and referral faxed. Will need a walk test when close to discharge. CM will continue to follow and will assist as needed with dc plans/needs. Medication Administration Professional: Maria Luisa Quezada DCPIA - Discharge Planning Initial Assessment Updated by [email or web address]: Maria Luisa Quezada on 05/24/20 11:34 am * Is the patient Alert and Oriented? Yes * How many steps to enter\exit or inside your home? 0/0 * PCP Dr. Howard * Pharmacy [facility] on [address] * Preadmission Environment Home with Family * ADLs Partial Dependent * Partial ADLs (Assistance needed) Ambulation Medication Management * Equipment Other Shower Chair Walker Wheelchair * Other Equipment Blood pressure cuff Scales * List name and contact numbers for known caregivers / representatives who currently or will assist patient after discharge: Giana Hennessy [facility] - [phone] Marino Hennessy [facility] - [phone] Holly Islas DTR - [phone] * Verbal permission to speak to the caregivers and representatives has been obtained from the patient. Yes * Community resources currently utilized None * Additional services required to return to the preadmission environment? Yes * Can the patient safely return to the preadmission environment? Yes * Has this patient been hospitalized within the prior 30 days at any hospital? No Last DP export: 05/24/20 10:35 a Patient Name: EILEEN HENNESSY Page 06518 at 1144 All edits/amendments must be made on the electronic document DICTATION DATE: 05/24/20 114 CANCER PROGRAM DIRECTOR: BARNEY 05/24/203 RPT#: [id number] DC DATE: STATUS: ADM IN [facility] [address] [place] [address] END OF REPORT
--- NOTE | 2020-05-24 11:50 | MORECARE ---
CASE MANAGEMENT DISCHARGE SUMMARY PATIENT: EILEEN HENNESSY UNIT: [id number] ADM DATE: 05/19/20 AGE: 79 : 40 SEX: M ROOM/BED: D.8 AUTHOR: WENCESLAO SCOTT PHYSICIAN: REFERRING PHYSICIAN: HANK HOWARD MD DATE OF SERVICE: 05/24/20 Discharge Plan Patient Name: EILEEN HENNESSY Facility: [facility]:[place] : 1940 Planned Disposition: Home with Home Health Anticipated Discharge Date: Discharge Date: Expected LOS: Initial Reviewer: [email or web address] Initial Review Date: 05/24/2020 Generated: 05/24/20 12:49 pm Comments DCP- Discharge Planning Updated by [email or web address]: Maria Luisa Quezada on 05/24/20 10:[address] Patient Name: EILEEN HENNESSY Admission Status: ER Accout number: [id number] Admission Date: 05-19-2020 : 1940 Admission Diagnosis:SHORTNESS OF BREATH Attending: HANK HOWARD Current LOS: 5 Anticipated DC Date: Planned Disposition: Home with Home Health Primary Insurance: MEDICARE A & B Discharge Planning Comments: CM met with patient to complete initial dc planning assessment. CM educated patient on the CM role and verbal consent given by patient to complete assessment. Patient lives at home with his son (Marino) and DIL (Giana). At discharge patient plans to return and feels this is a safe discharge. CM discussed availability of home health, rehab services, and medical equipment. Patient states he has had home health before and unsure which company he used, he would like me to call his son or DIL. He also states he had [employer] for his 's oxygen and does not want to use [employer] for oxygen if needed. I spoke with his DIL (Giana) and she discussed with her and they would like him to come home with [employer] and use [employer] as oxygen DME company if needed. I spoke with Ray with [employer] and referral faxed. Will need a walk test when close to discharge. CM will continue to follow and will assist as needed with dc plans/needs. Service Coordinator: Maria Luisa Quezada DCPIA - Discharge Planning Initial Assessment Updated by [email or web address]: Maria Luisarocky Quezada on 05/24/20 11:34 am * Is the patient Alert and Oriented? Yes * How many steps to enter\exit or inside your home? 0/0 * PCP Dr. Howard * Pharmacy [facility] on [address] * Preadmission Environment Home with Family * ADLs Partial Dependent * Partial ADLs (Assistance needed) Ambulation Medication Management * Equipment Other Shower Chair Walker Wheelchair * Other Equipment Blood pressure cuff Scales * List name and contact numbers for known caregivers / representatives who currently or will assist patient after discharge: Giana Hennessy [facility] - [phone] Marino Hennessy [facility] - [phone] Holly Islas DTR - [phone] * Verbal permission to speak to the caregivers and representatives has been obtained from the patient. Yes * Community resources currently utilized None * Additional services required to return to the preadmission environment? Yes * Can the patient safely return to the preadmission environment? Yes * Has this patient been hospitalized within the prior 30 days at any hospital? No Last DP export: 05/24/20 10:44 a Patient Name: EILEEN HENNESSY Page 61685 at 1150 All edits/amendments must be made on the electronic document DICTATION DATE: 05/24/20 1150 OUTSOLE FLEXER: BARNEY 05/24/20 1150 RPT#: [id number] DC DATE: STATUS: ADM IN [facility] [address] [place] [address] END OF REPORT
--- NOTE | 2020-05-24 12:04 | MORECARE ---
CASE MANAGEMENT DISCHARGE SUMMARY PATIENT: EILEEN HENNESSY UNIT: [id number] ADM DATE: 05/19/20 AGE: 79 : 40 SEX: M ROOM/BED: D.7513 AUTHOR: WENCESLAO SCOTT PHYSICIAN: REFERRING PHYSICIAN: HANK HOWARD MD DATE OF SERVICE: 05/24/20 Discharge Plan Patient Name: EILEEN HENNESSY Facility[facility]:[place] : 1940 Planned Disposition: Home with Home Health Anticipated Discharge Date: Discharge Date: Expected LOS: Initial Reviewer: [email or web address] Initial Review Date: 05/24/2020 Generated: 05/24/20 1:03 pm Comments DCP- Discharge Planning Updated by [email or web address]: Maria Luisa Quezada on 05/24/20 10:[address] Patient Name: EILEEN HENNESSY Admission Status: ER Accout number: [id number] Admission Date: 05-19-2020 : 1940 Admission Diagnosis:SHORTNESS OF BREATH Attending: HANK HOWARD Current LOS: 5 Anticipated DC Date: Planned Disposition: Home with Home Health Primary Insurance: MEDICARE A & B Discharge Planning Comments: CM met with patient to complete initial dc planning assessment. CM educated patient on the CM role and verbal consent given by patient to complete assessment. Patient lives at home with his son (Marino) and DIL (Giana). At discharge patient plans to return and feels this is a safe discharge. CM discussed availability of home health, rehab services, and medical equipment. Patient states he has had home health before and unsure which company he used, he would like me to call his son or DIL. He also states he had [employer] for his 's oxygen and does not want to use [employer] for oxygen if needed. I spoke with his DIL (Giana) and she discussed with her and they would like him to come home with [employer] and use [employer] as oxygen DME company if needed. I spoke with Ray with [employer] and referral faxed. Will need a walk test when close to discharge. CM will continue to follow and will assist as needed with dc plans/needs. Turn Out Worker: Maria Luisa Quezada DCPIA - Discharge Planning Initial Assessment Updated by [email or web address]: Maria Luisa Quezada on 05/24/20 11:34 am * Is the patient Alert and Oriented? Yes * How many steps to enter\exit or inside your home? 0/0 * PCP Dr. Howard * Pharmacy [facility] on [address] * Preadmission Environment Home with Family * ADLs Partial Dependent * Partial ADLs (Assistance needed) Ambulation Medication Management * Equipment Other Shower Chair Walker Wheelchair * Other Equipment Blood pressure cuff Scales * List name and contact numbers for known caregivers / representatives who currently or will assist patient after discharge: Giana Hennessy [facility] - [phone] Marino Hennessy [facility] - [phone] Holly Islas DTR - [phone] * Verbal permission to speak to the caregivers and representatives has been obtained from the patient. Yes * Community resources currently utilized None * Additional services required to return to the preadmission environment? Yes * Can the patient safely return to the preadmission environment? Yes * Has this patient been hospitalized within the prior 30 days at any hospital? No External Providers External Provider: Aleida Next Contact Date: Service Request Date: Service Type: Resolution: Reviewer: Comments: External Provider: [facility] Next Contact Date: Service Request Date: Service Type: Resolution: Reviewer: Comments: Coverage Notice Reviewer: [id number] - Maria Luisa Quezada Notice Issued Date-Time: 05/24/2020 12:02 Notice Type: Patient Choice Letter Notice Delivered To: Family Member Relationship to Patient: Daughter in Law Orientor Name: Giana Hennessy Delivery Method: HAND - Hand Delivered Yvette Days: Prior Verbal Notification: Recipient Understood Notice: Yes Recipient Signature: Yes Med Rec Note Co-signed by Attending: Coverage Notice Comment: [place] for Bear [facility] and [employer] Last DP export: 05/24/20 10:50 a Patient Name: EILEEN HENNESSY Page 97084 at 1204 All edits/amendments must be made on the electronic document DICTATION DATE: 05/24/20 1203 MIXED CROP [employer] LIVESTOCK FARMER: BARNEY 05/24/20 1203 RPT#: [id number] DC DATE: STATUS: ADM IN [facility] [address] [place] [address] END OF REPORT
--- NOTE | 2020-05-24 13:10 | NUR ---
Nutrition Follow-up: Pt [facility]. Reports that he is eating well. Diet: Cardiac PO intake: 75% avg x 10 meals Wt: 200# (05/20) Labs reviewed Meds noted: Protonix, Florajen, Lasix, KDur, Solumedrol, electrolyte protocol -Encourage PO intake and honor food preferences within diet restrictions. -Monitor wt; noted daily wts ordered. -RD following.
[2020-05-24 17:10] VITALS: BP 112/49
--- NOTE | 2020-05-24 19:30 | NUR ---
RECEIVED BEDSIDE REPORT. ROUNDING COMPLETE. PATIENT IS ALERT AND ORIENTED, RESTING COMFORTABLY IN BED. RESPIRATIONS ARE EVEN AND UNLABORED. NO S/S OF DISTRESS. NO C/O PAIN. CALL LIGHT WITHIN REACH. WILL CPOC.
[2020-05-24 22:45] VITALS: BP 119/55
[2020-05-25 02:12] VITALS: BP 122/49
[2020-05-25 06:14] VITALS: BP 135/58
[2020-05-25 07:00] VITALS: BP 137/53
[2020-05-25 11:00] VITALS: BP 101/51
--- NOTE | 2020-05-25 14:30 | MORECARE ---
CASE MANAGEMENT DISCHARGE SUMMARY PATIENT: EILEEN HENNESSY UNIT: [id number] ADM DATE: 05/19/20 AGE: 79 : 40 SEX: M ROOM/BED: D.8242 AUTHOR: WENCESLAO SCOTT PHYSICIAN: REFERRING PHYSICIAN: HANK HOWARD MD DATE OF SERVICE: 05/25/20 Discharge Plan Patient Name: EILEEN HENNESSY Facility: [facility]:[place] : 1940 Planned Disposition: Home with Home Health Anticipated Discharge Date: Discharge Date: Expected LOS: Initial Reviewer: [id number] Initial Review Date: 05/24/2020 Generated: 05/25/20 3:29 pm Comments DCP- Discharge Planning Updated by [email or web address]: Justa Johnson on 05/25/20 1:[address] Walk test: 95% RA, ambulating 250'. Patient will dc home with [facility]. Patient's family will drive him home and black pickler medications. DCP- Discharge Planning Updated by [email or web address]: Maria Luisa Quezada on 05/24/20 10:[address] Patient Name: EILEEN HENNESSY Admission Status: ER Accout number: [id number] Admission Date: 05-19-2020 : 1940 Admission Diagnosis:SHORTNESS OF BREATH Attending: HANK HOWARD Current LOS: 5 Anticipated DC Date: Planned Disposition: Home with Home Health Primary Insurance: MEDICARE A & B Discharge Planning Comments: CM met with patient to complete initial dc planning assessment. CM educated patient on the CM role and verbal consent given by patient to complete assessment. Patient lives at home with his son (Marino) and DIL (Giana). At discharge patient plans to return and feels this is a safe discharge. CM discussed availability of home health, rehab services, and medical equipment. Patient states he has had home health before and unsure which company he used, he would like me to call his son or DIL. He also states he had [employer] for his 's oxygen and does not want to use [employer] for oxygen if needed. I spoke with his DIL (Giana) and she discussed with her and they would like him to come home with [facility] and use [employer] as oxygen DME company if needed. I spoke with Ray with [facility] and referral faxed. Will need a walk test when close to discharge. CM will continue to follow and will assist as needed with dc plans/needs. Component Engineer: Maria Luisa Quezada DCPIA - Discharge Planning Initial Assessment Updated by [email or web address]: Maria Luisa Quezada on 05/24/20 11:34 am * Is the patient Alert and Oriented? Yes * How many steps to enter\exit or inside your home? 0/0 * PCP Dr. Howard * Pharmacy [facility] on [address] * Preadmission Environment Home with Family * ADLs Partial Dependent * Partial ADLs (Assistance needed) Ambulation Medication Management * Equipment Other Shower Chair Walker Wheelchair * Other Equipment Blood pressure cuff Scales * List name and contact numbers for known caregivers / representatives who currently or will assist patient after discharge: Giana Garsia [facility] - [phone] Marino Hennessy son - [phone] Holly Islas DTR - [phone] * Verbal permission to speak to the caregivers and representatives has been obtained from the patient. Yes * Community resources currently utilized None * Additional services required to return to the preadmission environment? Yes * Can the patient safely return to the preadmission environment? Yes * Has this patient been hospitalized within the prior 30 days at any hospital? No Coverage Notice Reviewer: [id number] - Maria Luisa Quezada Notice Issued Date-Time: 05/24/2020 12:02 Notice Type: Patient Choice Letter Notice Delivered To: Family Member Relationship to Patient: Daughter in Law Garbage Collector Name: Giana Hennessy Delivery Method: HAND - Hand Delivered Yvette Days: Prior Verbal Notification: Recipient Understood Notice: Yes Recipient Signature: Yes Med Rec Note Co-signed by Attending: Coverage Notice Comment: ALBERTA for [facility] and [employer] Reviewer: [id number] Sun Johnson Notice Issued Date-Time: 05/25/2020 14:22 Notice Type: IM Discharge Notice Notice Delivered To: Patient Relationship to Patient: Self Garbage Collector Name: Eileen Ford Delivery Method: HAND - Hand Delivered Yvette Days: Prior Verbal Notification: Recipient Understood Notice: Yes Recipient Signature: Yes Med Rec Note Co-signed by Attending: Coverage Notice Comment: DC IMM signed/provided to patient. original to chart Last DP export: 05/24/20 11:04 a Patient Name: EILEEN HENNESSY Page 92014 at 1430 All edits/amendments must be made on the electronic document DICTATION DATE: 05/25/201428 STUDENT CAREER DEVELOPMENT SPECIALIST: BARNEY 05/25/201428 RPT#: [id number] DC DATE: STATUS: ADM IN [facility] [address] [place] [address] END OF REPORT
[2020-05-25] MEDS ORDERED: PREDNISONE10 MG PO (15:20)
--- NOTE | 2020-05-25 16:43 | MORECARE ---
CASE MANAGEMENT DISCHARGE SUMMARY PATIENT: EILEEN HENNESSY UNIT: [id number] ADM DATE: 05/19/20 AGE: 79 : 40 SEX: M ROOM/BED: D.2112 AUTHOR: WENCESLAO SCOTT PHYSICIAN: REFERRING PHYSICIAN: HANK HOWARD MD DATE OF SERVICE: 05/25/20 Discharge Plan Patient Name: EILEEN HENNESSY Facility: [facility]:[place] : 1940 Planned Disposition: Home with Home Health Anticipated Discharge Date: Discharge Date: Expected LOS: Initial Reviewer: [email or web address] Initial Review Date: 05/24/2020 Generated: 05/25/20 5:42 pm Comments DCP- Discharge Planning Updated by [email or web address]: Justa Johnson on 05/25/20 3:[address] 1635: CM faxed DC summary, MAR to [facility]. Walk test: 95% RA, ambulating 250'. Patient will dc home with [facility]. Patient's family will drive him home and draft roller picker medications. DCP- Discharge Planning Updated by [email or web address]: Maria Luisa Quezada on 05/24/20 10:[address] Patient Name: EILEEN HENNESSY Admission Status: ER Accout number: [id number] Admission Date: 05-19-2020 : 1940 Admission Diagnosis:SHORTNESS OF BREATH Attending: HANK HOWARD Current LOS: 5 Anticipated DC Date: Planned Disposition: Home with Home Health Primary Insurance: MEDICARE A & B Discharge Planning Comments: CM met with patient to complete initial dc planning assessment. CM educated patient on the CM role and verbal consent given by patient to complete assessment. Patient lives at home with his son (Marino) and DIL (Giana). At discharge patient plans to return and feels this is a safe discharge. CM discussed availability of home health, rehab services, and medical equipment. Patient states he has had home health before and unsure which company he used, he would like me to call his son or DIL. He also states he had [employer] for his 's oxygen and does not want to use [employer] for oxygen if needed. I spoke with his DIL (Giana) and she discussed with her and they would like him to come home with [facility] and use [employer] as oxygen DME company if needed. I spoke with Ray with [facility] and referral faxed. Will need a walk test when close to discharge. CM will continue to follow and will assist as needed with dc plans/needs. Freight Dispatcher: Maria Luisa Quezada DCPIA - Discharge Planning Initial Assessment Updated by [email or web address]: Maria Luisa Quezada on 05/24/20 11:34 am * Is the patient Alert and Oriented? Yes * How many steps to enter\exit or inside your home? 0/0 * PCP Dr. Howard * Pharmacy [facility] on [address] * Preadmission Environment Home with Family * ADLs Partial Dependent * Partial ADLs (Assistance needed) Ambulation Medication Management * Equipment Other Shower Chair Walker Wheelchair * Other Equipment Blood pressure cuff Scales * List name and contact numbers for known caregivers / representatives who currently or will assist patient after discharge: Giana Hennessy [facility] - [phone] Marino Hennessy [facility] - [phone] Holly [facility] DTR - [phone] * Verbal permission to speak to the caregivers and representatives has been obtained from the patient. Yes * Community resources currently utilized None * Additional services required to return to the preadmission environment? Yes * Can the patient safely return to the preadmission environment? Yes * Has this patient been hospitalized within the prior 30 days at any hospital? No Coverage Notice Reviewer: [id number] - Maria Luisa Pilar Notice Issued Date-Time: 05/24/2020 12:02 Notice Type: Patient Choice Letter Notice Delivered To: Family Member Relationship to Patient: Daughter in Law Clinical Pharmacologist Name: Giana Hennessy Delivery Method: HAND - Hand Delivered Yvette Days: Prior Verbal Notification: Recipient Understood Notice: Yes Recipient Signature: Yes Med Rec Note Co-signed by Attending: Coverage Notice Comment: ALBERTA for [facility] and [employer] Reviewer: [id number] Sun Johnson Notice Issued Date-Time: 05/25/2020 14:22 Notice Type: IM Discharge Notice Notice Delivered To: Patient Relationship to Patient: Self Clinical Pharmacologist Name: Eileen Ford Delivery Method: HAND - Hand Delivered Yvette Days: Prior Verbal Notification: Recipient Understood Notice: Yes Recipient Signature: Yes Med Rec Note Co-signed by Attending: Coverage Notice Comment: DC IMM signed/provided to patient. original to chart Last DP export: 05/25/20 1:30 p Patient Name: EILEEN HENNESSY Page [id number] at 1643 All edits/amendments must be made on the electronic document DICTATION DATE: 05/25/201641 NAVAL SCIENCE TEACHER: BARNEY 05/25/201641 RPT#: [id number] DC DATE: STATUS: ADM IN [facility] [address] [place] [address] END OF REPORT
--- NOTE | 2020-05-25 17:16 | NUR ---
PT DISCHARGED HOME VIA WHEELCHAIR WITH FAMILY. PIV REMOVED WITH CATHETER TIP FULLY INTACT. BLADDER TRAINING PERFORMED PER PROTOCOL AND SANTIAGO CATH REMOVED. PT SIGNED PROPER DISCHARGE INSTRUCTIONS AND REMOVED ALL VALUABLES FROM THE ROOM.
== END 2020-05-25 17:17 | disposition home health service (06) | DRG 193 ==
LOC: D.ER 04:29 → D.EDHOLD 06:17 → D.M2 06:17
PROVIDERS: Family Medicine; ADMIT Family Medicine; ATTEND Family Medicine
DX: J18.9 Pneumonia, unspecified organism (principal); I21.A1 Myocardial infarction type 2; J44.0 Chronic obstructive pulmonary disease with (acute) lower respiratory infection; J44.1 Chronic obstructive pulmonary disease with (acute) exacerbation; I10 Essential (primary) hypertension; I25.10 Atherosclerotic heart disease of native coronary artery without angina pectoris; I48.0 Paroxysmal atrial fibrillation; D64.9 Anemia, unspecified; Z86.73 Personal history of transient ischemic attack (TIA), and cerebral infarction without residual deficits; Z72.0 Tobacco use

== ENCOUNTER 2020-05-26 12:50 | Inpatient (IN) | payer MEDICARE, BC ==
[~2020-05-26] VITALS: Ht 162.6 cm; Wt 72.1 kg
[~2020-05-26 12:50] MED LIST changes: +PREDNISONE10 MG PO
[2020-05-26 13:33] LABS: BASOPHILS 0.1 % (0-2); EOSINOPHILS 1.4 % (0-7); HEMATOCRIT 38.8 % (42.0-54.0); HEMOGLOBIN 12.3 g/dL (13.5-17.5); IMMATURE GRANULOCYTES 1.7 % (0-5); MCH 25.8 pg (26.0-34.0); MCHC 31.7 g/dL (31.0-37.0); MCV 81.3 fL (80.0-100.0); MEAN PLATELET VOLUME 9.7 fL (7.4-10.4); MONOCYTES 13.4 % (2-11); NEUTROPHILS 68.4 % (40-80); RBC 4.77 10x6/uL (4.20-6.10); RDW 16.7 % (11.5-14.5); WBC 10.6 10x3/uL (4.8-10.8)
[2020-05-26 13:37] LABS: PLATELET COUNT 280 10x3/uL (130-400)
[2020-05-26 13:44] LABS: APTT 22.6 SECONDS (22.8-39.4); INR 1.02 (0.85-1.17); PROTIME 13.4 SECONDS (11.6-15.0)
[2020-05-26 13:52] LABS: CALC OSMOLALITY 294 mosm/kg (275-300); CALCIUM 8.5 mg/dL (8.5-10.1); CARBON DIOXIDE 30.1 mmol/L (21.0-32.0); CHLORIDE - SERUM 101 mmol/L (98-107); CREATININE - SERUM 2.4 mg/dL (0.6-1.3); GLUCOSE 148 mg/dL (74-106); POTASSIUM - SERUM 3.7 mmol/L (3.5-5.1); SODIUM 137 mmol/L (136-145); UREA NITROGEN 64 mg/dL (7-18); eGFR NON AFRICAN AMERICAN 28 mL/min (90-120)
--- NOTE | 2020-05-26 14:02 | NUR ---
LAB IN ROOM NOW
--- NOTE | 2020-05-26 14:02 | NUR ---
RESPIRATORY IN ROOM NOW
[2020-05-26 14:07] VITALS: BP 93/48
[2020-05-26 14:16] LABS: ALBUMIN 3.3 g/dL (3.4-5.0); ALKALINE PHOSPHATASE 88 U/L (30-120); ALT (SGPT) 28 U/L (10-68); CKMB 1.1 U/L (0.0-3.6); CREATINE KINASE 43 UL (21-232); PRO BNP 2109 pg/mL (0-450)
--- NOTE | 2020-05-26 14:17 | NUR ---
PT TO CT
[2020-05-26 14:18] VITALS: BP 100/55
[2020-05-26 14:20] LABS: TROPONIN-I 0.078 ng/mL (0.000-0.060)
[2020-05-26 16:21] VITALS: BP 151/71
--- NOTE | 2020-05-26 16:22 | NUR ---
NS BOLUS IS INFUSING. PT CONTINUES TO CREASE ARM AND STOP INFUSING FLOW.
--- NOTE | 2020-05-26 16:31 | NUR ---
COVID SWAB TO LAB
[2020-05-26 19:30] VITALS: BP 120/54
[2020-05-26 19:57] LABS: CKMB 4.6 U/L (0.0-3.6); CREATINE KINASE 65 UL (21-232); TROPONIN-I 0.057 ng/mL (0.000-0.060)
[2020-05-26 21:30] VITALS: BP 87/48
--- NOTE | 2020-05-26 23:00 | NUR ---
REPORT GIVEN TO SHILA SIMON
[2020-05-27] VITALS (7 sets, daily range): BP systolic 112–160; BP diastolic 48–71; BMI 27.3
[2020-05-27 01:55] LABS: CKMB 1.4 U/L (0.0-3.6); CREATINE KINASE 44 UL (21-232); TROPONIN-I 0.056 ng/mL (0.000-0.060)
--- NOTE | 2020-05-27 06:52 | NUR ---
PATIENT IS RESTING WELL AND IS CLEAN AND DRY AT THIS TIME
[2020-05-27 09:45] LABS: BASOPHILS 0.1 % (0-2); EOSINOPHILS 1.6 % (0-7); HEMATOCRIT 36.9 % (42.0-54.0); HEMOGLOBIN 11.7 g/dL (13.5-17.5); IMMATURE GRANULOCYTES 1.3 % (0-5); MCH 25.8 pg (26.0-34.0); MCHC 31.7 g/dL (31.0-37.0); MCV 81.5 fL (80.0-100.0); MEAN PLATELET VOLUME 9.6 fL (7.4-10.4); MONOCYTES 9.1 % (2-11); NEUTROPHILS 77.9 % (40-80); PLATELET COUNT 234 10x3/uL (130-400); RBC 4.53 10x6/uL (4.20-6.10); RDW 16.8 % (11.5-14.5); WBC 9.8 10x3/uL (4.8-10.8)
[2020-05-27 10:32] LABS: ALBUMIN 2.7 g/dL (3.4-5.0); ALKALINE PHOSPHATASE 80 U/L (30-120); BILIRUBIN - TOTAL 0.53 mg/dL (0.2-1.3); CARBON DIOXIDE 28.2 mmol/L (21.0-32.0); CHLORIDE - SERUM 104 mmol/L (98-107); CREATINE KINASE 38 UL (21-232); GLUCOSE 123 mg/dL (74-106); POTASSIUM - SERUM 4.1 mmol/L (3.5-5.1); PROTEIN - SERUM 5.9 g/dL (6.4-8.2); SODIUM 138 mmol/L (136-145); TROPONIN-I 0.054 ng/mL (0.000-0.060)
[2020-05-27 10:38] LABS: ALT (SGPT) 20 U/L (10-68); CALC OSMOLALITY 286 mosm/kg (275-300); CKMB 1.2 U/L (0.0-3.6); CREATININE - SERUM 1.7 mg/dL (0.6-1.3); UREA NITROGEN 41 mg/dL (7-18); eGFR NON AFRICAN AMERICAN 41 mL/min (90-120)
[2020-05-27] MEDS ORDERED: PERCOCET 10-321 EAC1 PO (16:09)
[2020-05-27] MEDS ORDERED: ASPIRIN325 MG PO (16:13)
[2020-05-27] MEDS ORDERED: CENTRUM MEN'S1 EACH PO (16:14)
[2020-05-27] MEDS ORDERED: ZOFRAN4 MG PO (16:16)
--- NOTE | 2020-05-27 19:19 | NUR ---
REPORT RECIEVED AND ROUNDING COMPLETE. ADMIT ASSESMENT DONE. PATIENT LAYING IN BED IN LOW FOWLERS POSITION. PATIENT IS [place]TER[place]Y [place]. LEFT AC PIV THAT IS SALINE LOCKED. PATIENT STATES HE HAS NO NEEDS AT THIS TIME. NO PAIN REPORTED. NO DISTRESS NOTED. CALL LIGHT WITHIN REACH AND BED IN LOWEST LOCKED POSITION.
[2020-05-28] VITALS: BP 122/71
[2020-05-28 04:42] VITALS: BP 117/52
[2020-05-28 09:52] VITALS: BP 101/42
[2020-05-28 14:01] LABS: ANION GAP 9.6 mmol/L (8-16); CALCIUM 7.7 mg/dL (8.5-10.1); CARBON DIOXIDE 30.4 mmol/L (21.0-32.0); CREATININE - SERUM 1.5 mg/dL (0.6-1.3)
--- NOTE | 2020-05-28 14:15 | NUR ---
UP AMBULATING WITH PT ASSIST.
[2020-05-28 14:28] VITALS: BP 105/40
[2020-05-28 15:05] VITALS: Ht 162.6 cm; Wt 72.1 kg
[2020-05-28 21:41] VITALS: BP 97/46
--- NOTE | 2020-05-28 22:45 | NUR ---
BEDTIME MEDS GIVEN. ASSISTED TO AMBULATE TO BATHROOM TO HAVE SMALL BOWEL MOVEMENT. PERSONAL CARE PROVIDED. AMBULATED BACK TO BED WITH ONE PERSON ASSISTANCE. BED ALARM IN PLACE. CALL LIGHT IN REACH.
--- NOTE | 2020-05-28 23:26 | NUR ---
INITIAL ROUNDS AND ASSESSMENT COMPLETED. PT RESTING IN BED. NO DISTRESS. CALL LIGHT IN REACH. CPOC.
--- NOTE | 2020-05-29 00:21 | NUR ---
CARE PROVIDED FOR INCONTINENCE OF URINE.
[2020-05-29 04:40] VITALS: BP 131/53
[2020-05-29 06:00] LABS: BASOPHILS 0.1 % (0-2); EOSINOPHILS 3.1 % (0-7); LYMPHOCYTES 22.7 % (15-50); MCH 25.5 pg (26.0-34.0); MCHC 31.3 g/dL (31.0-37.0); MCV 81.5 fL (80.0-100.0); MEAN PLATELET VOLUME 9.7 fL (7.4-10.4); MONOCYTES 10.9 % (2-11); NEUTROPHILS 62.2 % (40-80); RDW 16.5 % (11.5-14.5); WBC 7.7 10x3/uL (4.8-10.8)
[2020-05-29 06:34] LABS: HEMATOCRIT 29.1 % (42.0-54.0); HEMOGLOBIN 9.1 g/dL (13.5-17.5); PLATELET COUNT 164 10x3/uL (130-400); RBC 3.57 10x6/uL (4.20-6.10)
--- NOTE | 2020-05-29 06:35 | NUR ---
NO CHANGE FROM INITIAL SHIFT ASSESSMENT. CONTINUE PLAN OF CARE. CALL LIGHT IN REACH. BED LOW AND SR UP X 2. REPORT TO ONCOMING SHIFT.
[2020-05-29 06:50] LABS: ANION GAP 8.7 mmol/L (8-16); CALCIUM 7.9 mg/dL (8.5-10.1); CREATININE - SERUM 1.3 mg/dL (0.6-1.3); POTASSIUM - SERUM 3.7 mmol/L (3.5-5.1)
--- NOTE | 2020-05-29 07:30 | NUR ---
PT RESTING COMFORTABLY IN BED, WITH EYES CLOSED, NAD NOTED. LT AC INFUSING NS AT 60CC/HR. MONITOR SHOWING SR WITH RATE OF 66. PT ON RA WITH RESP EVEN AND NONLABORED. CALL LIGHT IN REACH, WILL CONTINUE PLAN OF CARE.
[2020-05-29 10:30] VITALS: BP 137/54
--- NOTE | 2020-05-29 14:33 | NUR ---
PT WAS ABLE TO WALK 250FT WITH PHYSICAL THERAPY.
--- NOTE | 2020-05-29 14:50 | NUR ---
PROVIDED VERBAL AND WRITTEN DISCHARGE TEACHING TO PT, WHO VERBALIZED UNDERSTANDING REGARDING TEACHING. HEART MONITOR REMOVED AND TAKEN TO IRISH MOSS OPERATOR.
--- NOTE | 2020-05-29 15:52 | NUR ---
WHEELED PT TO ER ENTRANCE WITH ALL BELONGINGS, ACCOMPANIED BY PT'S SON, NAD NOTED.
--- NOTE | 2020-05-29 16:49 | MORECARE ---
CASE MANAGEMENT DISCHARGE SUMMARY PATIENT: EILEEN OSBORN UNIT: [id number] ADM DATE: 05/26/20 AGE: 79 : 40 SEX: M ROOM/BED: D.2121 AUTHOR: WENCESLAO SCOTT PHYSICIAN: REFERRING PHYSICIAN: HANK HOWARD MD DATE OF SERVICE: 05/29/20 Discharge Plan Patient Name: EILEEN OSBORN [facility] [facility] 1940 Planned Disposition: Home Health Service Anticipated Discharge Date: 05/29/20 Discharge Date: 05/29/2020 Expected LOS: 3 Initial Reviewer: [email or web address] Initial Review Date: 05/26/2020 Generated: 05/29/20 5:49 pm External Providers External Provider: [facility] Next Contact Date: Service Request Date: Service Type: Resolution: Reviewer: Comments: External Provider: [facility] [facility] Next Contact Date: Service Request Date: Service Type: Resolution: Reviewer: Comments: Patient Name: EILEEN OSBORN Page [id number] at 1649 All edits/amendments must be made on the electronic document DICTATION DATE: 05/29/201648 BAGGAGE AGENT SUPERVISOR: BARNEY 05/29/201648 RPT#: [id number] DC DATE:05/29/20 STATUS: DIS IN [place] [id number] [place] [address] END OF REPORT
--- NOTE | 2020-05-29 16:57 | MORECARE ---
CASE MANAGEMENT DISCHARGE SUMMARY PATIENT: EILEEN OSBORN UNIT: [id number] ADM DATE: 05/26/20 AGE: 79 : 40 SEX: M ROOM/BED: D.2667 AUTHOR: WENCESLAO SCOTT PHYSICIAN: REFERRING PHYSICIAN: HANK HOWARD MD DATE OF SERVICE: 05/29/20 Discharge Plan Patient Name: EILEEN OSBORN Facility: [facility]:[place] : 1940 Planned Disposition: Home Health Service Anticipated Discharge Date: 05/29/20 Discharge Date: 05/29/2020 Expected LOS: 3 Initial Reviewer: [id number] Initial Review Date: 05/26/2020 Generated: 05/29/20 5:56 pm Comments DCP- Discharge Planning Updated by ANISA: Curry Moy on 05/29/20 3:[address] DC IMM delivered, explained, signed by the patient, and placed in chart. Signed form also left with the patient. DCP- Discharge Planning Updated by [email or web address]: Curry Moy on 05/29/20 3:[address] Patient Name: EILEEN OSBORN Admission Status: ER Accout number: [id number] Admission Date: 05-26-2020 : 1940 Admission Diagnosis:ACUTE KIDNEY FAILURE, UNSPECIFIED Attending: HANK HOWARD Current LOS: 3 Anticipated DC Date: 05-29-2020 Planned Disposition: Home Health Service Primary Insurance: MEDICARE A & B Discharge Planning Comments: CM met with patient to complete DC plan and needs. CM educated patient on the CM role and verbal consent was given by patient to complete assessment. CM verified patient's address, phone number, and emergency contact phone numbers. Patient lives at home with family. His son Marino ([phone]) takes care of him. At discharge patient plans to return home and feels this is a safe discharge. The patient has 0 steps to navigate to enter the home and it is safe. Patient fills his medications at [facility]. CM discussed availability of home health, rehab services, and medical equipment. Patient declined SNF, IPR, and DME. Dr. Howard would like for patient to have HHS. Patient stated that he has no preference for HHS. Spoke with [facility], Jes at [phone] to fax clinicals to [phone]. The patient mentioned/discussed no other discharge needs and he/she is satisfied with DC plan. Transportation provider at discharge will be his son Marino. CM will continue to follow and will assist as needed with dc plans/needs. Parking Enforcement Manager: Curry Moy DCPIA - Discharge Planning Initial Assessment Updated by [email or web address]: Curry Moy on 05/29/20 4:52 pm * Is the patient Alert and Oriented? Yes * How many steps to enter\\exit or inside your home? * PCP Dr. Howard * Pharmacy [facility] on [address] * Preadmission Environment Home with Family * ADLs Partial Dependent * Partial ADLs (Assistance needed) Medication Management * Equipment Cane Walker * Other Equipment n/a * List name and contact numbers for known caregivers / representatives who currently or will assist patient after discharge: Marino (son) [phone] * Verbal permission to speak to the caregivers and representatives has been obtained from the patient. Yes * Community resources currently utilized None * Please name any agencies selected above. n/a * Additional services required to return to the preadmission environment? Yes * Can the patient safely return to the preadmission environment? Yes * Has this patient been hospitalized within the prior 30 days at any hospital? No Coverage Notice Reviewer: [id number] Sun Myo Notice Issued Date-Time: 05/29/2020 12:33 Notice Type: Patient Choice Letter Notice Delivered To: Patient Relationship to Patient: Self Director Of Planning Name: Delivery Method: HAND - Hand Delivered Yvette Days: Prior Verbal Notification: Recipient Understood Notice: Yes Recipient Signature: Yes Med Rec Note Co-signed by Attending: Coverage Notice Comment: "no preference" [facility] Reviewer: [id number] Sun Moy Notice Issued Date-Time: 05/29/2020 12:33 Notice Type: IM Discharge Notice Notice Delivered To: Patient Relationship to Patient: Self Director Of Planning Name: Delivery Method: HAND - Hand Delivered Yvette Days: Prior Verbal Notification: Recipient Understood Notice: Yes Recipient Signature: Yes Med Rec Note Co-signed by Attending: Coverage Notice Comment: DC IMM delivered, explained, signed by the patient, and placed in chart. Signed form also left with the patient. Last DP export: 05/29/20 3:49 p Patient Name: EILEEN OSBORN Page 18635 at 1657 All edits/amendments must be made on the electronic document DICTATION DATE: 05/29/201655 EQUIPMENT SALES SPECIALIST: BARNEY 05/29/201655 RPT#: [id number] DC DATE:05/29/20 STATUS: DIS IN [facility] [address] [place] [address] END OF REPORT
--- NOTE | 2020-05-31 08:49 | MORECARE ---
CASE MANAGEMENT DISCHARGE SUMMARY PATIENT: EILEEN OSBORN UNIT: [id number] ADM DATE: 05/26/20 AGE: 79 : 40 SEX: M ROOM/BED: D.7505 AUTHOR: WENCESLAO SCOTT PHYSICIAN: REFERRING PHYSICIAN: HANK HOWARD MD DATE OF SERVICE: 05/31/20 Discharge Plan Patient Name: EILEEN OSBORN Facility: [facility]:[place] : 1940 Planned Disposition: Home Health Service Anticipated Discharge Date: 05/29/20 Discharge Date: 05/29/2020 Expected LOS: 3 Initial Reviewer: [email or web address] Initial Review Date: 05/26/2020 Generated: 05/31/20 9:48 am Comments DCP- Discharge Planning Updated by ANISA: Curry Moy on 05/29/20 3:[address] DC IMM delivered, explained, signed by the patient, and placed in chart. Signed form also left with the patient. DCP- Discharge Planning Updated by [email or web address]: Curry Moy on 05/29/20 3:[address] Patient Name: EILEEN OSBORN Admission Status: ER Accout number: [id number] Admission Date: 05-26-2020 : 1940 Admission Diagnosis:ACUTE KIDNEY FAILURE, UNSPECIFIED Attending: HANK HOWARD Current LOS: 3 Anticipated DC Date: 05-29-2020 Planned Disposition: Home Health Service Primary Insurance: MEDICARE A & B Discharge Planning Comments: CM met with patient to complete DC plan and needs. CM educated patient on the CM role and verbal consent was given by patient to complete assessment. CM verified patient's address, phone number, and emergency contact phone numbers. Patient lives at home with family. His son Marino ([phone]) takes care of him. At discharge patient plans to return home and feels this is a safe discharge. The patient has 0 steps to navigate to enter the home and it is safe. Patient fills his medications at [facility]. CM discussed availability of home health, rehab services, and medical equipment. Patient declined SNF, IPR, and DME. Dr. Howard would like for patient to have HHS. Patient stated that he has no preference for HHS. Spoke with [facility], Jes at [phone] to fax clinicals to [phone]. The patient mentioned/discussed no other discharge needs and he/she is satisfied with DC plan. Transportation provider at discharge will be his son Marino. CM will continue to follow and will assist as needed with dc plans/needs. Import Coordinator: Curry Moy DCPIA - Discharge Planning Initial Assessment Updated by [email or web address]: Curry Moy on 05/29/20 4:52 pm * Is the patient Alert and Oriented? Yes * How many steps to enter\\exit or inside your home? * PCP Dr. Howard * Pharmacy [facility] on [address] * Preadmission Environment Home with Family * ADLs Partial Dependent * Partial ADLs (Assistance needed) Medication Management * Equipment Cane Walker * Other Equipment n/a * List name and contact numbers for known caregivers / representatives who currently or will assist patient after discharge: Marino (son) [phone] * Verbal permission to speak to the caregivers and representatives has been obtained from the patient. Yes * Community resources currently utilized None * Please name any agencies selected above. n/a * Additional services required to return to the preadmission environment? Yes * Can the patient safely return to the preadmission environment? Yes * Has this patient been hospitalized within the prior 30 days at any hospital? No Coverage Notice Reviewer: [id number] Sun Moy Notice Issued Date-Time: 05/29/2020 12:33 Notice Type: Patient Choice Letter Notice Delivered To: Patient Relationship to Patient: Self Film Mounter Name: Delivery Method: HAND - Hand Delivered Yvette Days: Prior Verbal Notification: Recipient Understood Notice: Yes Recipient Signature: Yes Med Rec Note Co-signed by Attending: Coverage Notice Comment: "no preference" [facility] Reviewer: [id number] Sun Moy Notice Issued Date-Time: 05/29/2020 12:33 Notice Type: IM Discharge Notice Notice Delivered To: Patient Relationship to Patient: Self Film Mounter Name: Delivery Method: HAND - Hand Delivered Yvette Days: Prior Verbal Notification: Recipient Understood Notice: Yes Recipient Signature: Yes Med Rec Note Co-signed by Attending: Coverage Notice Comment: DC IMM delivered, explained, signed by the patient, and placed in chart. Signed form also left with the patient. Last DP export: 05/29/20 3:57 p Patient Name: EILEEN OSBORN Page 55029 at 0849 All edits/amendments must be made on the electronic document DICTATION DATE: 05/31/20847 ASSISTANT PROFESSOR NURSE EDUCATION: ABRNEY 05/31/20847 RPT#: [id number] DC DATE:05/29/20 STATUS: DIS IN [facility] [address] [place] [address] END OF REPORT
== END 2020-05-29 15:52 | disposition home health service (06) | DRG 684 ==
LOC: D.ER 12:50 → D.EDHOLD 14:45 → D.M2 14:45
PROVIDERS: Family Medicine; ADMIT Family Medicine; ATTEND Family Medicine
DX: N17.9 Acute kidney failure, unspecified (principal); I25.10 Atherosclerotic heart disease of native coronary artery without angina pectoris; I10 Essential (primary) hypertension; I71.4 Abdominal aortic aneurysm, without rupture; F17.210 Nicotine dependence, cigarettes, uncomplicated